=== PATIENT | male | born 1945 | race Caucasian/White ===

== ENCOUNTER → 2017-02-25 | Outpatient (CLI) | payer BC ==
[2017-02-25 11:12] LABS: ALT/SGPT 62 U/L (12-78); AST/SGOT 41 U/L (15-37); BLOOD UREA NITROGEN 13 mg/dl (7-18); BUN/CREATININE RATIO 17.5 (10-20); CALCIUM 8.9 mg/dl (8.5-10.1); CARBON DIOXIDE 28 mmol/L (21-32); CHLORIDE 104 mmol/L (98-107); CREATININE 0.74 mg/dl (0.60-1.40); GLUCOSE 108 mg/dl (70-99); POTASSIUM 3.8 mmol/L (3.5-5.1); SODIUM 140 mmol/L (136-145)
[2017-02-25 11:23] LABS: ALB/GLOB RATIO 0.9 (0.9-2); ALKALINE PHOSPHATASE 59 U/L (45-117); CHOLESTEROL 199 mg/dl (0-200); CHOLESTEROL/HDL RATIO 2.6; HDL CHOLESTEROL 77 mg/dl; LDL CHOLESTEROL CALCULATED 108 mg/dl; TRIGLYCERIDES 72 mg/dl (0-150); VERY LOW DENSITY LIPOPROT CALC 14 mg/dl
[2017-02-25 11:24] LABS: BASO % 0.6 %; BASO ABS # 0.05 K/uL (0-0.2); COMPLETE YES; HEMATOCRIT 47.6 % (42-52); IG% 0.1 %; LYMPH % 28.7 %; LYMPH ABS # 2.34 K/uL (1.2-3.4); MEAN CELL VOLUME 98.6 fL (80-100); MEAN CORPUSCULAR HEMOGLOBIN 34.2 pg (25-34); MEAN CORPUSCULAR HGB CONC 34.7 g/dl (32-36); MONO % 14.2 %; NEUT % 55.4 %; PLATELET COUNT 120 K/uL (130-400); RED BLOOD COUNT 4.83 M/uL (4.7-6.1); WHITE BLOOD COUNT 8.16 K/uL (4.8-10.8)
[2017-02-25 13:10] LABS: URINE APPEARANCE CLEAR (CLEAR); URINE BILIRUBIN NEG (NEG); URINE COLOR YELLOW; URINE EPITHELIAL CELL AUTO 0-5 /lpf (0-5); URINE NITRITE NEG (NEG); URINE PH 6.5 (4.5-7.5); URINE SPECIFIC GRAVITY 1.013 (1.000-1.030); UROBILINOGEN NEG (NEG)
[2017-02-25 13:19] LABS: MANUAL MICROSCOPIC REQUIRED? NO; REVIEW REQ? NO
--- NOTE | 2017-03-04 08:31 | CODING QUERY MEDICAL NECESSITY ---
CQSUPPORTING DIAGNOSIS NEEDED A supporting diagnosis is required for the test/procedure performed on this patient in order for us to be reimbursed by the patient's insurance. Please provide a supporting diagnosis for the following test/procedure listed below next to the test name along with your signature. *If there is no additional diagnosis for this patient that would support the following test/procedure please document that below next to the test/procedure. Test(s)/Procedure(s) that require a supporting diagnosis: DOS 02/25/17 PROSTATE SPECIFIC (PSA) TEST Provider Signature: Date: Thank you Laurel Mott Health Information Management Once completed, please kindly fax back to [phone] For questions please call [phone]
== END | disposition home or self-care (01) ==
LOC: C.LABBC 08:01
PROVIDERS: ATTEND Internal Medicine Pulmonary Disease
DX: Z00.00 Encounter for general adult medical examination without abnormal findings (principal); I10 Essential (primary) hypertension; E01.2 Iodine-deficiency related (endemic) goiter, unspecified; F52.8 Other sexual dysfunction not due to a substance or known physiological condition; E78.5 Hyperlipidemia, unspecified; Z12.5 Encounter for screening for malignant neoplasm of prostate

== ENCOUNTER → 2018-02-25 | Outpatient (CLI) | payer BC ==
[2018-02-25 11:30] LABS: BASO % 0.9 %; BASO ABS # 0.06 K/uL (0-0.2); EOS % 0.7 %; EOS ABS # 0.05 K/uL (0-0.5); HEMATOCRIT 45.4 % (42-52); HEMOGLOBIN 16.2 g/dL (14.0-18.0); IG# 0.01 K/uL (0.00-0.02); LYMPH % 34.4 %; LYMPH ABS # 2.37 K/uL (1.2-3.4); MEAN CELL VOLUME 96.4 fL (80-100); MEAN CORPUSCULAR HEMOGLOBIN 34.4 pg (25-34); MEAN CORPUSCULAR HGB CONC 35.7 g/dl (32-36); MEAN PLATELET VOLUME 12.9 fL (7.4-10.4); MONO % 14.8 %; MONO ABS # 1.02 K/uL (0.11-0.59); NEUT % 49.1 %; NEUT ABS # 3.38 K/uL (1.4-6.5); PLATELET COUNT 111 K/uL (130-400); RED CELL DISTRIBUTION WIDTH SD 42.4 fL (36.4-46.3); WHITE BLOOD COUNT 6.89 K/uL (4.8-10.8)
[2018-02-25 11:37] LABS: ALBUMIN 3.1 gm/dl (3.4-5.0); ALT/SGPT 71 U/L (12-78); AST/SGOT 55 U/L (15-37); BLOOD UREA NITROGEN 14 mg/dl (7-18); CALCIUM 8.4 mg/dl (8.5-10.1); CARBON DIOXIDE 28 mmol/L (21-32); CREATININE 0.89 mg/dl (0.60-1.40); GLUCOSE 98 mg/dl (70-99); SODIUM 138 mmol/L (136-145)
[2018-02-25 11:48] LABS: ALKALINE PHOSPHATASE 56 U/L (45-117); CHOLESTEROL 191 mg/dl (0-200); LDL CHOLESTEROL CALCULATED 111 mg/dl
== END | disposition home or self-care (01) ==
LOC: C.LABBC 07:55
PROVIDERS: ATTEND Internal Medicine Pulmonary Disease
DX: I10 Essential (primary) hypertension (principal); E01.2 Iodine-deficiency related (endemic) goiter, unspecified; E78.5 Hyperlipidemia, unspecified; J30.9 Allergic rhinitis, unspecified; M72.0 Palmar fascial fibromatosis [Dupuytren]

== ENCOUNTER 2022-05-25 19:38 | Observation (INO) ==
[2022-05-25] MEDS ORDERED: SODIUM CHLORIDE 0.9% 1000ML 1,000 ML IV ONE (20:18)
--- NOTE | 2022-05-25 20:23 | Emergency Department Note ---
Impression & Plan Weakness, Right arm weakness, Fall, Alcohol abuse, Stroke-like symptoms ED Provider Note NAME: FCO ACOSTA AGE: 77 SEX: M : 1945 ARRIVES VIA: Ambulance INFORMANT: [Patient][ems] ED PROVIDER(S): [Enzo Thompson MD] CHIEF COMPLAINT: Fall HISTORY OF PRESENT ILLNESS: The patient is a 77-year-old male who presents to the ER after falling out of bed. He thinks this occurred about 4 hours ago. He was not able to get up on his own and was crawling around on the floor. He admits to drinking at least 3 vodka drinks today. He does drink on a daily basis. The patient states that he had felt fine earlier in the day. There has been no fever, no cough or congestion. He has been in baseline health. As per EMS, his blood sugar was 105. EMS reported that his right arm and both lower legs were quite weak and almost immobile at first. His legs have improved and are now quite strong. The right arm is still somewhat weak. There is no facial droop. Of note, the patient has no history of CVA. REVIEW OF SYSTEMS: See HPI for pertinent positives and negatives. A total of ten systems were reviewed and were otherwise negative. PMHx/PSHx: See Below SOCIAL HISTORY: See Below. PHYSICAL EXAM: GENERAL: Patient is in no acute distress. HEENT: No acute trauma, normocephalic atraumatic, mucous membranes dry, no nasal congestion, no scleral icterus. NECK: No stridor, no adenopathy, no meningismus, trachea is midline. LUNGS: Clear to auscultation bilaterally, no wheeze, no rhonchi, breath sounds equal. HEART: Without murmurs gallops or rubs, regular rate and rhythm. ABDOMEN: Soft, nontender, bowel sounds positive, no peritonitis. EXTREMITIES: No cyanosis or edema, full range of motion of all the joints without pain or difficulty. The patient does have an abrasion to the right anterior knee and to the tip of the left great toe. NEUROLOGIC: Oriented x 3. The patient has good strength and no drift of either lower extremity. The left upper extremity does not drift. The right upper extremity does drift but his hand grasp is quite strong on the right. There is no facial droop. SKIN: No rash, no jaundice, no diaphoresis. DIFFERENTIAL DIAGNOSIS: Infection, dehydration, UTI, alcohol abuse, metabolic abnormality, hypo/hyperglycemia, electrolyte disturbance, anemia, hypoxia, cardiac sources, intracerebral event, toxicologic issues, stroke, TIA, as well as other pathologies. EMERGENCY DEPARTMENT COURSE/PROCEDURES: ECG: Indication was possible stroke. The ECG shows a normal sinus rhythm with a rate of 84. There is no ST elevation, no PVCs. The QTc is 427. Continuous Cardiac Monitoring: An order was placed for continuous cardiac monitoring. The monitor shows a rate of 90 with normal sinus rhythm. Critical Care Note: I have personally spent 52 minutes of critical care time in the direct management of this patient. This includes bedside care, interpretation of diagnostic studies, and testing, discussion with consultants, patient, and family members, and other required patient management activities. This 52 minutes is in excess of all separately billable procedures. MEDICAL DECISION MAKING: There is a mild leukocytosis, this could be consistent with infection or the stress of his presentation. Platelet count is slightly low, this has been documented before. There was no anemia. No coagulopathy. No renal failure, no significant electrolyte abnormality in need of emergent correction. No concerning liver enzyme elevation. ECG showed a normal sinus rhythm, no ischemi a. Cardiac enzyme testing x1 was not consistent with acute cardiac injury. Urinalysis did not show infection. Alcohol level was quite high at over 300. COVID test returned negative. Brain CT showed no acute bleed or mass-effect. CT angio of the head and neck did show some cervical artery stenosis, no acute clot. On exam, the patient's lower extremity weakness had improved markedly, there was no lower extremity drift, no speech slur, he did have weakness to the proximal muscles of the right arm. The right hand grasp was strong and intact. Patient received IV saline, 1 L. The patient presents with strokelike symptoms. He had markedly improved prior to arrival. He was out of the window for tPA as his symptoms had started over 4 hours prior to presentation. At this point, I am not certain if this is a stroke or some sort of alcohol- related weakness or some sort of peripheral nerve impingement/injury. I do think further workup in the hospital is warranted. I spoke with the patient, patient believes that the right arm weaknesshas improved since he has been in the ED. His strength seems better proximally. I did talk to case management, the on-call hospitalist has been consulted. Past Med/Surg History Medical History Anxiety Hypertension Thrombocytopenia Surgical History H/O colonoscopy (~2003) Family History Mother Alzheimer disease Father Alzheimer disease Social History Smoking Status: Never smoker Hx Alcohol Use: Yes Alcohol type: beer and hard liquor Hx Substance Use: No Preferred Language: Palauan Communication Ability: Effective Osteopathic Neurologist Required: No Beliefs That Will Affect Care: None marital status: Current Living Situation: Spouse Current Living Situation Comment: worries about balance current occupational status: retired Feels Safe at Home: Yes Assistive Devices: Glasses Allergies Allergies Allergy/AdvReac Type Severity Reaction Status Date / Time Sulfa (Sulfonamide Allergy Intermediate Rash Verified 05/25/22 21:10 Antibiotics) Home Meds Home Medications Medication Instructions Recorded Confirmed cyclobenzaprine 5 mg tablet 5 mg PO HS PRN Spasms 09/05/19 05/25/22 ketoconazole 2 % topical cream 1 applic topical DIRECTED PRN 09/05/19 05/25/22 Skin Irritation loratadine 10 mg tablet 10 mg PO DAILY 09/05/19 05/25/22 sildenafil 50 mg tablet 50 mg PO DIRECTED PRN Sexual 09/05/19 05/25/22 Activity Previous Rx's Medication Instructions Recorded lisinopril 20 1 tab PO DAILY #90 tabs 04/18/22 mg-hydrochlorothiazide 25 mg tablet Results & Data (ED) Vital Signs Vital Signs - 24 hr 05/25/22 19:46 05/25/22 21:32 05/26/22 00:08 Temperature 36.6 C Temperature Source Oral Pulse Rate 90 Pulse Rate [Apical] 91 H 84 Pulse Rhythm Regular Pulse Strength Normal Respiratory Rate 20 18 17 Respiratory Effort / Characteristics Non-Labored Non-Labored Spontaneous Respiratory Depth Normal Normal Respiratory Pattern Regular Blood Pressure 166/86 H Blood Pressure [Left Arm] 126/78 148/84 H Blood Pressure Mean 112 Blood Pressure Mean [Left Arm] 94 105 Blood Pressure Position [Left Arm] Lying Pulse Oximetry 94 97 96 Oxygen Delivery Method Room Air Room Air Room Air Sepsis Recent Fever Within 48 Hours No Sepsis New/Unexplained Change in Mental Status N/A Sepsis Action Taken by Nursing No Action Required Home Medications Current Medication List: was personally reviewed by me Laboratory Data Attestation: I reviewed the patient's lab results. Result diagrams: 05/25/22 20:44 05/25/22 20:44 Lab Results 05/25/22 05/25/22 05/25/22 Range/Units 20:44 20:44 20:44 WBC 11.10 H (4.8-10.8) K/ul RBC 4.29 L (4.63-6.08) M/uL Hgb 14.7 (14.0-18.0) g/dl Hct 41.7 (40.1-51.0) % MCV 97.2 (80.0-100.0) fL MCH 34.3 H (25.0-34.0) pg MCHC 35.3 (32.0-36.0) g/dL RDW Std Deviation 39.8 (36.4-46.3) fL RDW Coeff of Alberto 11.3 L (11.5-14.5) % Plt Count 115 L (130-400) K/uL MPV 11.9 (9.4-12.4) fL Immature Gran % (Auto) 0.4 % Neut % (Auto) 76.4 % Lymph % (Auto) 15.3 % Bacon % (Auto) 7.4 % Eos % (Auto) 0.1 % Baso % (Auto) 0.4 % Neut # (Auto) 8.49 H (1.4-6.5) K/uL Lymph # (Auto) 1.70 (1.2-3.4) K/uL Bacon # (Auto) 0.82 (0.24-0.82) K/uL Eos # (Auto) 0.01 (0-0.50) K/uL Baso # (Auto) 0.04 (0-0.2) K/uL Immature Gran # (Auto) 0.04 H (0.00-0.02) K/uL PT 10.5 (9.0-12.0) Seconds INR 1.0 (0.9-1.1) APTT 22.4 (21.0-31.0) Seconds PTT Ratio 0.8 Sodium 135 L (136-145) mmol/L Potassium 3.5 (3.5-5.1) mmol/L Chloride 98 (98-107) mmol/L Carbon Dioxide 23 (21-32) mmol/L Anion Gap 14 H (3-11) BUN 15 (6-23) mg/dl Creatinine 1.01 (0.6-1.4) mg/dl Est Cr Clr Drug Dosing 71.6 ml/min Est GFR ( Amer) 83.9 ml/min Est GFR (Non-Af Amer) 72.4 ml/min BUN/Creatinine Ratio 14.9 (10-20) Glucose 100 H (70-99(Fasting)) mg/dl Calcium 8.8 (8.5-10.1) mg/dl Magnesium 1.7 (1.7-2.4) mg/dl Total Bilirubin 0.9 (0.2-1.0) mg/dl AST 33 (13-39) U/L ALT 25 (7-52) U/L Alkaline Phosphatase 50 (34-104) U/L Troponin I High Sens 8.2 (0-20) pg/ml Total Protein 6.6 (6.0-8.3) gm/dl Albumin 3.8 (3.4-5.0) gm/dl Globulin 2.8 (2.5-4.0) gm/dl Albumin/Globulin Ratio 1.4 (0.9-2) Urine Color Urine Appearance (Clear) Urine pH (4.5-7.5) Ur Specific Aurora (1.000-1.030) Urine Protein (Negative) Urine Glucose (UA) (Negative) Urine Ketones (Negative) Urine Blood (Negative) Urine Nitrite (Negative) Urine Bilirubin (Negative) Urine Urobilinogen (Negative) Ur Leukocyte Esterase (Negative) Ethyl Alcohol mg/dL (<10.0) mg/dl SARS-CoV-2, RNA, NAAT (NEGATIVE) 05/25/22 05/25/22 05/25/22 Range/Units 20:44 20:45 22:10 WBC (4.8-10.8) K/ul RBC (4.63-6.08) M/uL Hgb (14.0-18.0) g/dl Hct (40.1-51.0) % MCV (80.0-100.0) fL MCH (25.0-34.0) pg MCHC (32.0-36.0) g/dL RDW Std Deviation (36.4-46.3) fL RDW Coeff of Alberto (11.5-14.5) % Plt Count (130-400) K/uL MPV (9.4-12.4) fL Immature Gran % (Auto) % Neut % (Auto) % Lymph % (Auto) % Bacon % (Auto) % Eos % (Auto) % Baso % (Auto) % Neut # (Auto) (1.4-6.5) K/uL Lymph # (Auto) (1.2-3.4) K/uL Bacon # (Auto) (0.24-0.82) K/uL Eos # (Auto) (0-0.50) K/uL Baso # (Auto) (0-0.2) K/uL Immature Gran # (Auto) (0.00-0.02) K/uL PT (9.0-12.0) Seconds INR (0.9-1.1) APTT (21.0-31.0) Seconds PTT Ratio Sodium (136-145) mmol/L Potassium (3.5-5.1) mmol/L Chloride (98-107) mmol/L Carbon Dioxide (21-32) mmol/L Anion Gap (3-11) BUN (6-23) mg/dl Creatinine (0.6-1.4) mg/dl Est Cr Clr Drug Dosing ml/min Est GFR ( Amer) ml/min Est GFR (Non-Af Amer) ml/min BUN/Creatinine Ratio (10-20) Glucose (70-99(Fasting)) mg/dl Calcium (8.5-10.1) mg/dl Magnesium (1.7-2.4) mg/dl Total Bilirubin (0.2-1.0) mg/dl AST (13-39) U/L ALT (7-52) U/L Alkaline Phosphatase (34-104) U/L Troponin I High Sens (0-20) pg/ml Total Protein (6.0-8.3) gm/dl Albumin (3.4-5.0) gm/dl Globulin (2.5-4.0) gm/dl Albumin/Globulin Ratio (0.9-2) Urine Color Yellow Urine Appearance Clear (Clear) Urine pH 7.0 (4.5-7.5) Ur Specific Aurora 1.021 (1.000-1.030) Urine Protein Negative (Negative) Urine Glucose (UA) Negative (Negative) Urine Ketones Negative (Negative) Urine Blood Negative (Negative) Urine Nitrite Negative (Negative) Urine Bilirubin Negative (Negative) Urine Urobilinogen Negative (Negative) Ur Leukocyte Esterase Negative (Negative) Ethyl Alcohol mg/dL 308.1 H (<10.0) mg/dl SARS-CoV-2, RNA, NAAT NEGATIVE (NEGATIVE) Administered Medications Folic Acid 1 mg/ Syringe 10 mls @ 5 mls[facility] [place] Stop: 06/25/22 10:29 Last Admin: 05/26/22 10:54 Dose: 5 mls/min Documented By: JULITO Thiamine HCl 100 mg/ Syringe 10 mls @ 2 mls/min IV QAM [facility] Stop: 06/25/22 10:29 Last Admin: 05/26/22 10:54 Dose: 2 mls/min Documented By: JULITO Pantoprazole Sodium 40 mg/ (Syringe) 10 mls @ 5 mls/min IV DAILY@1100 [facility] Stop: 06/25/22 10:59 Last Admin: 05/26/22 10:53 Dose: 5 mls/min Documented By: JULITO Sodium Chloride (Nss) 500 mls @ 80 mls/hr IV .Q6H15M [facility] Stop: 06/25/22 10:44 Last Admin: 05/26/22 10:53 Dose: 80 mls/hr Documented By: JULITO Loratadine (Loratadine 10 Mg Tab) 10 mg PO DAILY [facility] Stop: 06/25/22 08:59 Last Admin: 05/26/22 09:02 Dose: 10 mg Documented By: JULITO Discontinued Medications Aspirin (Aspirin 81 Mg Chew) 324 mg PO ONCE ONE Stop: 05/26/22 09:35 Last Admin: 05/26/22 10:47 Dose: 324 mg Documented By: JULITO Lisinopril/HCTZ (Lisinopril/Hctz 20/25mg 1 Tab) 1 tab PO DAILY [facility] Stop: 06/25/22 08:59 Last Admin: 05/26/22 09:02 Dose: 1 tab Documented By: JULITO Sodium Chloride (Nss 1000ml) 1,000 mls @ 999 mls/hr IV .Q1H1M ONE Stop: 05/25/22 21:18 Last Infusion: 05/25/22 21:42 Dose: 0 mls/hr Documented By: Admin: 05/25/22 20:41 Dose: 999 mls/hr Documented By: ABEL Lorazepam 1 mg/ Syringe 1 mls @ 2 mls/min IV NOW STA Stop: 05/26/22 11:20 Last Admin: 05/26/22 12:16 Dose: 2 mls/min Documented By: JULITO Ioversol (Optiray 320 125ml) 120 ml IV ONCE ONE Stop: 05/25/22 21:56 Last Admin: 05/25/22 21:55 Dose: 120 ml Documented By: AUSTIN Thiamine HCl (Thiamine Hcl 100 Mg/Ml 2 Ml Vial) 100 mg IM NOW STA Stop: 05/26/22 10:01 Last Admin: 05/26/22 10:56 Dose: 100 mg Documented By: JULITO Imaging Data Radiologist's Impression: Chest X-Ray 05/25/22 20:18 XR chest 1V portable HISTORY: 77 years-old Male Stroke Like Symptoms acute strokelike symptoms COMPARISON: CTA head neck of same day TECHNIQUE: Semierect AP view of the chest FINDINGS: Cardiac silhouette is enlarged. No pneumothorax, large pleural effusion or lobar airspace consolidation. Mild interstitial coarsening is most pronounced in the left lung base. Degenerative changes of the shoulders and spine. IMPRESSION: 1. Cardiomegaly without overt pulmonary edema. 2. Mild interstitial opacities, most pronounced within the left lung base are likely chronic. ACT 112: Negative or not required by law. The above report was generated using voice recognition software. It may contain grammatical, syntax or spelling errors. Electronically signed by: Tad Cardoso M.D. 05/26/2022 9:[address] 05/25/22 20:18 CT head/brain wo con CLINICAL HISTORY: 77 years-old Male with Stroke Like Symptoms. Acute strokelike symptoms TECHNIQUE: Multiple axial CT images of the head were obtained without contrast. A dose lowering technique was utilized adhering to the principles of ALARA. COMPARISON: CTA head and neck of same day. FINDINGS: No acute intracranial hemorrhage, midline shift, intracranial mass, hydrocephalus, territorial ischemia or abnormal extra-axial collection. Age- related involutional changes. Cerebral vascular calcifications. The calvarium is intact. Prior bilateral lens repair. The paranasal sinuses, mastoid air cells, and middle ear cavities are clear. IMPRESSION: No acute intracranial abnormality. ACT 112: Negative or not required by law. The above report was generated using voice recognition software. It may contain grammatical, syntax or spelling errors. Electronically signed by: Tad Cardoso M.D. 05/26/2022 7:10 AM Head CTA 05/25/22 20:18 CT angio neck with con, CT angio head w con CLINICAL HISTORY: 77 years-old Male with Stroke Like Symptoms. Acute strokelike symptoms COMPARISON STUDY: Head CT of same day TECHNIQUE: Following the IV administration of 120 of Optiray, CT angiogram of the head and neck was performed from the aortic arch to the skull apex. Images are reviewed in the axial, sagittal, and coronal planes. 3-D MIPS images are created and assessed. IV contrast was administered without complication. All measurements were calculated based on NASCET criteria. A dose lowering technique was utilized adhering to the principles of ALARA. CT DOSE: 1211.58 mGy.cm FINDINGS: Atherosclerosis of the thoracic aortic arch. Patency of the innominate and imaged subclavian arteries. Atherosclerosis of the common carotid arteries without high-grade stenosis. There is moderate atherosclerotic plaque of the carotid bulbs and proximal cervical segments of the internal carotid arteries resulting in less than 50% stenosis bilaterally. There is additional atherosclerotic plaque of the cavernous and clinoid segments without significant stenosis. Atherosclerotic plaque at the origin of the right vertebral artery results in approximately 50% stenosis. There is less than 50% stenosis at the origin of the left vertebral artery. High-grade stenosis of the distal V4 segment right vertebral artery. No flow identified within the V4 segment of the left vertebral artery. Mild multifocal luminal narrowing of the diminutive basilar artery. Ectasia of the basilar tip measures 3 mm. Mild multifocal luminal narrowing of the right posterior cerebral artery. Cerebral venous sinuses are patent. There is no abnormal intracranial enhancement. Lung apices are clear. Heterogeneous 1.9 cm right-sided thyroid nodule. Mild polypoid mucosal thickening of the left maxillary sinus. Degenerative changes of the spine. IMPRESSION: 1. High-grade stenosis of the V4 segment right vertebral artery with high-grade stenosis versus occlusion of the V4 segment left vertebral artery, age- indeterminate. This finding was called/faxed to the floor at time of dictation. 2. Atherosclerotic plaque of the carotid bulbs results in less than 50% stenosis bilaterally. 3. There is approximately 50% luminal narrowing at the origin of the right vertebral artery. ACT 112: Negative or not required by law. The above report was generated using voice recognition software. It may contain grammatical, syntax or spelling errors. Electronically signed by: Tad Cardoso M.D. 05/26/2022 7:32 AM Neck CTA 05/25/22 20:18 CT angio neck with con, CT angio head w con CLINICAL HISTORY: 77 years-old Male with Stroke Like Symptoms. Acute strokelike symptoms COMPARISON STUDY: Head CT of same day TECHNIQUE: Following the IV administration of 120 of Optiray, CT angiogram of the head and neck was performed from the aortic arch to the skull apex. Images are reviewed in the axial, sagittal, and coronal planes. 3-D MIPS images are cr eated and assessed. IV contrast was administered without complication. All measurements were calculated based on NASCET criteria. A dose lowering technique was utilized adhering to the principles of ALARA. CT DOSE: 1211.58 mGy.cm FINDINGS: Atherosclerosis of the thoracic aortic arch. Patency of the innominate and imaged subclavian arteries. Atherosclerosis of the common carotid arteries without high-grade stenosis. There is moderate atherosclerotic plaque of the carotid bulbs and proximal cervical segments of the internal carotid arteries resulting in less than 50% stenosis bilaterally. There is additional atheros clerotic plaque of the cavernous and clinoid segments without significant stenosis. Atherosclerotic plaque at the origin of the right vertebral artery results in approximately 50% stenosis. There is less than 50% stenosis at the origin of the left vertebral artery. High-grade stenosis of the distal V4 segment right vertebral artery. No flow identified within the V4 segment of the left vertebral artery. Mild multifocal luminal narrowing of the diminutive basilar artery. Ectasia of the basilar tip measures 3 mm. Mild multifocal luminal narrowing of the right posterior cerebral artery. Cerebral venous sinuses are patent. There is no abnormal intracranial enhancement. Lung apices are clear. Heterogeneous 1.9 cm right-sided thyroid nodule. Mild polypoid mucosal thickening of the left maxillary sinus. Degenerative changes of the spine. IMPRESSION: 1. High-grade stenosis of the V4 segment right vertebral artery with high-grade stenosis versus occlusion of the V4 segment left vertebral artery, age- indeterminate. This finding was called/faxed to the floor at time of dictation. 2. Atherosclerotic plaque of the carotid bulbs results in less than 50% stenosis bilaterally. 3. There is approximately 50% luminal narrowing at the origin of the right vertebral artery. ACT 112: Negative or not required by law. The above report was generated using voice recognition software. It may contain grammatical, syntax or spelling errors. Electronically signed by: Tad Cardoso M.D. 05/26/2022 7:[address]: No acute intracranial abnormality. Atrophy and chronic microangiopathic changes seen CTA of the neck: Mild stenosis at the origin of the right vertebral artery which is otherwise adequately patent. Mild stenosis at the origin of the left vertebral artery which is otherwise adequately patent. Bilateral common carotid arteries are adequately patent. Bilateral internal carotid arteries are adequately patent. Thyroid nodule seen. CTA of the head: No arterial occlusion. Discharge Plan Visit Data Chief Complaint: Fall ED Provider: Enzo Thompson Discharge Problem: Weakness, Right arm weakness, Fall, Alcohol abuse, Stroke-like symptoms Patient Disposition: Admitted As Inpatient Condition: Fair Discharge Instructions Interventions: ED Discharge Assessment Last Done: 05/26/22 04:39
[2022-05-25 20:56] LABS: Basophils # (auto) 0.04 K/uL (0-0.2); Basophils % (auto) 0.4 %; Eosinophils # (auto) 0.01 K/uL (0-0.50); Eosinophils % (auto) 0.1 %; Hematocrit (blood only) 41.7 % (40.1-51.0); Hemoglobin 14.7 g/dl (14.0-18.0); Immature Granulocytes # (auto) 0.04 K/uL (0.00-0.02); Immature Granulocytes % (auto) 0.4 %; Lymphocytes % (auto) 15.3 %; Mean Corpuscular Hemoglobin 34.3 pg (25.0-34.0); Mean Corpuscular Hgb Conc 35.3 g/dL (32.0-36.0); Mean Corpuscular Volume 97.2 fL (80.0-100.0); Mean Platelet Volume 11.9 fL (9.4-12.4); Monocytes # (auto) 0.82 K/uL (0.24-0.82); Monocytes % (auto) 7.4 %; Neutrophils # (auto) 8.49 K/uL (1.4-6.5); Neutrophils % (auto) 76.4 %; Platelet Count 115 K/uL (130-400); RDW Coefficient of Variation 11.3 % (11.5-14.5); RDW Standard Deviation 39.8 fL (36.4-46.3); Red Blood Count 4.29 M/uL (4.63-6.08)
[2022-05-25 21:18] LABS: Albumin Globulin Ratio 1.4 (0.9-2); Albumin Level 3.8 gm/dl (3.4-5.0); BUN Creatinine Ratio 14.9 (10-20); Bilirubin,Total 0.9 mg/dl (0.2-1.0); Calcium 8.8 mg/dl (8.5-10.1); Creatinine Clr Calc Pharmacy 71.6 ml/min; Est GFR (African American) 83.9 ml/min; Est GFR (Non-African American) 72.4 ml/min; Globulin 2.8 gm/dl (2.5-4.0); Magnesium 1.7 mg/dl (1.7-2.4); Potassium 3.5 mmol/L (3.5-5.1); Total Protein 6.6 gm/dl (6.0-8.3)
[2022-05-25 21:23] LABS: Troponin I High Sensitivity 8.2 pg/ml (0-20)
[2022-05-25 21:27] LABS: Partial Thromboplastin Ratio 0.8; Partial Thromboplastin Time 22.4 Seconds (21.0-31.0); Prothrombin Time 10.5 Seconds (9.0-12.0)
[2022-05-25] MEDS ORDERED: OPTIRAY 320 125ml IV ONE (21:55)
[2022-05-25 22:27] LABS: Appearance Urine Clear (Clear); Bilirubin Urine Negative (Negative); Blood Urine Negative (Negative); Color Urine Yellow; Glucose Urine UA Negative (Negative); Ketones Urine Negative (Negative); Leukocyte Esterase Urine Negative (Negative); Nitrite Urine Negative (Negative); Protein Urine Negative (Negative); Specific Gravity Urine 1.021 (1.000-1.030); Urobilinogen Urine Negative (Negative)
--- NOTE | 2022-05-26 04:33 | History & Physical Report ---
Date of Service May 26, 2022 Assessment & Plan (1) Right arm weakness: Plan: Improving subjective right arm weakness/resolved right leg weakness/status post fall out of bed- Patient lying on floor for unknown interval time Had difficulty moving right side of body in particular upon awakening Right leg examination normal Right arm with good manager equipment strength, no neck pain, no shoulder pain, his arm is able to be passively lifted into full normal position, and is able to move it to full positioned but slowly actively I suspect he probably has a mild compression of nerve after lying on that side for and extended interval of time. We will just monitor him overnight. If symptoms are persistent in the morning will do MRI of brain and cervical spine Do not think that this is a stroke His history for this event is not completely reliable, as he has significant alcohol intake with alcohol level of 308 (2) Hypertension: Plan: Continue lisinopril/HCTZ (3) Alcohol intoxication: Plan: Alcohol level 308 upon admission, and reports daily use Suspect he will be discharged prior to any possibility of withdrawal, however, would put on AWSS protocol if patient remains in the hospital longer than lunchtime (4) Anxiety: (5) Inhibited sexual excitement: (6) Thrombocytopenia: (7) Status post fall: History of Present Illness Chief Complaint: The patient presents to the emergency department after falling out of bed while playing with his dog, he was on the floor for unknown period of time, thinking that it was a least 4 hours, and had difficulty moving his right arm and right leg. Upon arrival by EMS, they reported that his right arm and both lower legs were quite weak and almost immobile at first, by the time the patient arrived to the emergency department, his legs were improved but his right arm was still feeling somewhat weak. Primary Care Provider: Fco Crump MD The patient is a 77-year-old male with a past medical history including nontoxic diffuse colloid goiter, hypertension, hyperlipidemia, heel spur, hearing loss, glaucoma, Dupuytren's contracture, anxiety and allergic rhinitis. Who presents with symptoms as noted above. It was also noted that he did not have any facial droop, difficulty with speech or swallowing. Reports drinking alcohol daily basis, and alcohol level in the emergency department was 308. CT scan of head without contrast was negative, CTA head was negative, CTA of neck showed mild stenosis of the origin of both the right vertebral and left vertebral arteries with normal flow. Allergies Allergy/AdvReac Type Severity Reaction Status Date / Time Sulfa (Sulfonamide Allergy Intermediate Rash Verified 05/25/22 21:10 Antibiotics) Home Medications Medication Instructions Recorded Confirmed Type cyclobenzaprine 5 mg tablet 5 mg PO HS PRN Spasms 09/05/19 05/25/22 History ketoconazole 2 % topical cream 1 applic topical DIRECTED PRN 09/05/19 05/25/22 History Skin Irritation loratadine 10 mg tablet 10 mg PO DAILY 09/05/19 05/25/22 History sildenafil 50 mg tablet 50 mg PO DIRECTED PRN Sexual 09/05/19 05/25/22 History Activity lisinopril 20 1 tab PO DAILY #90 tabs 04/18/22 05/25/22 Rx mg-hydrochlorothiazide 25 mg tablet Past Med/Surg History Surgical History H/O colonoscopy (~2003) Family History Mother Alzheimer disease Father Alzheimer disease Social History Smoking Status: Never smoker Hx Alcohol Use: Yes marital status: Current Living Situation: Spouse current occupational status: retired Feels Safe at Home: Yes Review of Systems Review of Systems: The patient denies chest pain, palpitations, shortness of breath, dyspnea on exertion, cough, lower extremity swelling, sore throat, fevers, chills, sweats, weight change, fatigue, nausea, vomiting, diarrhea , constipation, abdominal pain, pelvic pain, blood in urine or stool, dysuria, urinary frequency or urgency, lightheadedness, dizziness, headache, rash, abnormal bruising or bleeding, focal weakness, numbness or tingling in left arm, generalized arthralgias or myalgias, back or neck pain, or night sweats. The review of systems is otherwise negative other than for that already noted above, and at least 10 systems have been reviewed. Physical Exam Physical Exam: The patient is awake, alert and oriented 3, well developed and well nourished, normocephalic and atraumatic, lying in bed and in no acute distress. HEENT--PERRL, EOMI, mucous membranes and oropharynx dry. Neck--supple. No JVD. No bruits. Thyroid normal, trachea midline, no adenopathy. Heart--normal S1 and S2. No murmurs, rubs or gallops. Lungs--clear bilaterally, no respiratory distress, no accessory muscle use. Abdomen--normal bowel sounds and soft. Nontender. Nondistended, no hernias or masses, no organomegaly. Extremities--no cyanosis or clubbing. No edema. There are good distal pulses b/l. Dermatologic--normal skin turgor, normal color, no abnormal lymph nodes, no rash. Neurologic--cranial nerves II through XII grossly intact. Rheumatologic--normal range of motion, except for decreased ability to lift right arm, being able to slowly lifted to normal range compared to normal speed and amplitude of left arm. Top Edge Beveler strength normal bilaterally Psychiatric--normal affect. Results & Data Results & Data ([facility]) Vital Signs (Past 12 Hours) Vital Signs Temp Pulse Pulse Resp BP BP Pulse Ox 05/26/22 03:37 86 18 181/81 H 96 05/26/22 00:08 84 17 148/84 H 96 05/25/22 21:32 91 H 18 126/78 97 05/25/22 19:46 36.6 C 90 20 166/86 H 94 O2 Del Method 05/26/22 03:37 Room Air 05/26/22 00:08 Room Air 05/25/22 21:32 Room Air 05/25/22 19:46 Room Air Laboratory Results Laboratory Results WBC 11.10 K/ul (4.8-10.8) H 05/25/22 20:44 RBC 4.29 M/uL (4.63-6.08) L 05/25/22 20:44 Hgb 14.7 g/dl (14.0-18.0) 05/25/22 20:44 Hct 41.7 % (40.1-51.0) 05/25/22 20:44 MCV 97.2 fL (80.0-100.0) 05/25/22 20:44 MCH 34.3 pg (25.0-34.0) H 05/25/22 20:44 MCHC 35.3 g/dL (32.0-36.0) 05/25/22 20:44 RDW Std Deviation 39.8 fL (36.4-46.3) 05/25/22 20:44 RDW Coeff of Alberto 11.3 % (11.5-14.5) L 05/25/22:44 Plt Count 115 K/uL (130-400) L 05/25/22 20:44 MPV 11.9 fL (9.4-12.4) 05/25/22 20:44 Immature Gran % (Auto) 0.4 % 05/25/22:44 Neut % (Auto) 76.4 % 05/25/22 20:44 Lymph % (Auto) 15.3 % 05/25/22 20:44 [place] % (Auto) 7.4 % 05/25/22:44 Eos % (Auto) 0.1 % 05/25/22:44 Baso % (Auto) 0.4 % 05/25/22:44 Neut # (Auto) 8.49 K/uL (1.4-6.5) H 05/25/22 20:44 Lymph # (Auto) 1.70 K/uL (1.2-3.4) 05/25/22 20:44 [place] # (Auto) 0.82 K/uL (0.24-0.82) 05/25/22 20:44 Eos # (Auto) 0.01 K/uL (0-0.50) 05/25/22 20:44 Baso # (Auto) 0.04 K/uL (0-0.2) 05/25/22 20:44 Immature Gran # (Auto) 0.04 K/uL (0.00-0.02) H 05/25/22 20:44 PT 10.5 Seconds (9.0-12.0) 05/25/22 20:44 INR 1.0 (0.9-1.1) 05/25/22:44 APTT 22.4 Seconds (21.0-31.0) 05/25/22:44 PTT Ratio 0.8 05/25/22 20:44 Sodium 135 mmol/L (136-145) L 05/25/22 20:44 Potassium 3.5 mmol/L (3.5-5.1) 05/25/22:44 Chloride 98 mmol/L (98-107) 05/25/22 20:44 Carbon Dioxide 23 mmol/L (21-32) 05/25/22 20:44 Anion Gap 14 (3-11) H 05/25/22 20:44 BUN 15 mg/dl (6-23) 05/25/22 20:44 Creatinine 1.01 mg/dl (0.6-1.4) 05/25/22 20:44 Est Cr Clr Drug Dosing 71.6 ml/min 05/25/22 20:44 Est GFR ( Amer) 83.9 ml/min 05/25/22 20:44 Est GFR (Non-Af Amer) 72.4 ml/min 05/25/22 20:44 BUN/Creatinine Ratio 14.9 (10-20) 05/25/22 20:44 Glucose 100 mg/dl (70-99(Fasting)) H 05/25/22 20:44 Calcium 8.8 mg/dl (8.5-10.1) 05/25/22 20:44 Magnesium 1.7 mg/dl (1.7-2.4) 05/25/22 20:44 Total Bilirubin 0.9 mg/dl (0.2-1.0) 05/25/22 20:44 AST 33 U/L (13-39) 05/25/22 20:44 ALT 25 U/L (7-52) 05/25/22 20:44 Alkaline Phosphatase 50 U/L (34-104) 05/25/22 20:44 Troponin I High Sens 8.2 pg/ml (0-20) 05/25/22 20:44 Total Protein 6.6 gm/dl (6.0-8.3) 05/25/22 20:44 Albumin 3.8 gm/dl (3.4-5.0) 05/25/22 20:44 Globulin 2.8 gm/dl (2.5-4.0) 05/25/22 20:44 Albumin/Globulin Ratio 1.4 (0.9-2) 05/25/22 20:44 Urine Color Yellow 05/25/22 22:10 Urine Appearance Clear (Clear) 05/25/22 22:10 Urine pH 7.0 (4.5-7.5) 05/25/22 22:10 Ur Specific [place] 1.021 (1.000-1.030) 05/25/22 22:10 Urine Protein Negative (Negative) 05/25/22 22:10 Urine Glucose (UA) Negative (Negative) 05/25/22 22:10 Urine Ketones Negative (Negative) 05/25/22 22:10 Urine Blood Negative (Negative) 05/25/22 22:10 Urine Nitrite Negative (Negative) 05/25/22 22:10 Urine Bilirubin Negative (Negative) 05/25/22 22:10 Urine Urobilinogen Negative (Negative) 05/25/22 22:10 Ur Leukocyte Esterase Negative (Negative) 05/25/22 22:10 Ethyl Alcohol mg/dL 308.1 mg/dl (<10.0) H 05/25/22 20:44 SARS-CoV-2, RNA, NAAT NEGATIVE (NEGATIVE) 05/25/22 20:45 Diagnostic Findings [facility] Patient: FCO ACOSTA JR (Male) : 49 Status: ER Date: 05/25/22 22:01 Room #: History: STROKE LIKE SX'S PT MOVING AROUND ON TABLE, CT SAFETY STRAPS USED FOR PT SAFETY OPTIRAY 320 120ML EK/DG Slices: 793 Priors: Tech: Enzo Munoz @ [phone] Exams: CTA NECK Contrast: IV Amt: 120ML Accession Numbers: [id number] Referring Physician: REFERRED SELF Preliminary Findings Only See Final Report For Complete Findings CTA NECK: Mild stenosis at the origin of the right vertebral artery, which is otherwise adequately patent. Mild stenosis at the origin of the left vertebral artery, which is otherwise adequately patent. Bilateral common carotid arteries are adequately patent. Bilateral internal carotid arteries are adequately patent. Thyroid nodules. Radiologist: Herminio Salgado M.D. Study ready at 22:05 and initial results transmitted at 00:19 *This report constitutes a preliminary interpretation only. Non-acute findings felt to be unrelated to the clinical presentation may not be discussed in this report. The study will be interpreted and a final report will be generated by the local Radiologist the following shift. To reach the [facility] radiology department call [phone]. [facility] Patient: FCO ACOSTA JR (Male) : 49 Status: ER Date: 05/25/22 22:04 Room #: History: STROKE LIKE SX'S PT MOVING AROUND ON TABLE, CT SAFETY STRAPS USED FOR PT SAFETY OPTIRAY 320 120ML EK/DG Slices: 67 Priors: Tech: Enzo Munoz @ [phone] Exams: CT HEAD Contrast: Accession Numbers: [id number] Referring Physician: REFERRED SELF Preliminary Findings Only See Final Report For Complete Findings CT HEAD: No acute intracranial abnormality. Atrophy and chronic microangiopathic changes. Radiologist: Seth Bullard MD Study ready at 23:50 and initial results transmitted at 00:02 *This report constitutes a preliminary interpretation only. Non-acute findings felt to be unrelated to the clinical presentation may not be discussed in this report. The study will be interpreted and a final report will be generated by the local Radiologist the following shift. To reach the [facility] radiology department call [phone]. If a discrepancy is found between the preliminary and final interpretations of this study, please notify us via our Client Portal at [email or web address], under QA Exams. You can also fax this report with a description of the discrepancy, or include the final report, to our daytime fax number [phone]. If faxing, please indicate the severity of discrepancy using one of the following categories: [ ] 1 - Agree/Informational [ ] 2 - Unlikely to Affect Management [ ] 3 - Possible Eventual Change of Management [ ] 4 - Probable Immediate Change of Management For all other patient re [facility] Patient: FCO ACOSTA JR (Male) : 49 Status: ER Date: 05/25/22 22:07 Room #: History: STROKE LIKE SX'S PT MOVING AROUND ON TABLE, CT SAFETY STRAPS USED FOR PT SAFETY OPTIRAY 320 120ML EK/DG Slices: 618 Priors: Tech: Enzo Munoz @ [phone] Exams: CTA HEAD Contrast: IV Amt: 120ML Accession Numbers: [id number] Referring Physician: REFERRED SELF Preliminary Findings Only See Final Report For Complete Findings CTA HEAD: No arterial occlusion. The proximal basilar is attenuated in appearance. Remainder of the basilar is widely patent. Good blood flow in the room inspector and within the [place] of [place]. Radiologist: Seth Bullard MD Study ready at 00:30 and initial results transmitted at 00:41 *This report constitutes a preliminary interpretation only. Non-acute findings felt to be unrelated to the clinical presentation may not be discussed in this report. The study will be interpreted and a final report will be generated by the local Radiologist the following shift. To reach the [facility] radiology department call [phone]. If a discrepancy is found between the preliminary and final interpretations of this study, please notify us via our Client Portal at [email or web address], under QA Exams. You can also fax this report with a description of the discrepancy, or include the final report, to our daytime fax number [phone]. If faxing, please indicate the severity of discrepancy using one of the following categories: [ ] 1 - Agree/Informational [ ] 2 - Unlikely to Affect Management [ ] 3 - Possible Eventual Change of Management [ ] 4 - Probable Immediate Change of Management For all other patient related i Code Status & VTE Plan Code Status Full code VTE Prophylaxis Plan VTE Prophylaxis will be ordered: Yes PG Care Time/CCT Total # of Minutes Spent Total Time Spent with Patient: Total time spent is greater than 50% in coordination of care (as documented) at patient's floor/unit and/or counseling patient: Coding Level of Care Code INT OBSERVATION CARE 70M LVL 3 Diagnoses Right arm weakness R29.898 Hypertension I10 Alcohol intoxication F10.929 Anxiety F41.9 Inhibited sexual excitement F52.8 Thrombocytopenia D69.6 Status post fall Z91.81
[2022-05-26] MEDS ORDERED: ONDANSETRON INJ 2 MG/ML 2 ML VIAL IV PRN (05:31)
[2022-05-26] MEDS ORDERED: CYCLOBENZAPRINE HCL 5 MG TAB PO PRN (05:31)
--- NOTE | 2022-05-26 07:11 | CT Scan Report ---
CT head/brain wo con CLINICAL HISTORY: 77 years-old Male with Stroke Like Symptoms. Acute strokelike symptoms TECHNIQUE: Multiple axial CT images of the head were obtained without contrast. A dose lowering tech nique was utilized adhering to the principles of ALARA. COMPARISON: CTA head and neck of same day. FINDINGS: No acute intracranial hemorrhage, midline shift, intracranial mass, hydrocephalus, territorial ischem ia or abnormal extra-axial collection. Age-related involutional changes. Cerebral vascular calcificat ions. The calvarium is intact. Prior bilateral lens repair. The paranasal sinuses, mastoid air cells, and m iddle ear cavities are clear. IMPRESSION: No acute intracranial abnormality. ACT 112: Negative or not required by law. The above report was generated using voice recognition software. It may contain grammatical, syntax o r spelling errors. Electronically signed by: Tad Cardoso M.D. 05/26/2022 7:10 AM
--- NOTE | 2022-05-26 07:34 | CT Scan Report ---
CT angio neck with con, CT angio head w con CLINICAL HISTORY: 77 years-old Male with Stroke Like Symptoms. Acute strokelike symptoms COMPARISON STUDY: Head CT of same day TECHNIQUE: Following the IV administration of 120 of Optiray, CT angiogram of the head and neck was p erformed from the aortic arch to the skull apex. Images are reviewed in the axial, sagittal, and wilma nal planes. 3-D MIPS images are created and assessed. IV contrast was administered without complicati on. All measurements were calculated based on NASCET criteria. A dose lowering technique was utilize d adhering to the principles of ALARA. CT DOSE: 1211.58 mGy.cm FINDINGS: Atherosclerosis of the thoracic aortic arch. Patency of the innominate and imaged subclavian arteries . Atherosclerosis of the common carotid arteries without high-grade stenosis. There is moderate ather osclerotic plaque of the carotid bulbs and proximal cervical segments of the internal carotid arterie s resulting in less than 50% stenosis bilaterally. There is additional atherosclerotic plaque of the cavernous and clinoid segments without significant stenosis. Atherosclerotic plaque at the origin of the right vertebral artery results in approximately 50% stenosis. There is less than 50% stenosis at the origin of the left vertebral artery. High-grade stenosis of the distal V4 segment right vertebral artery. No flow identified within the V4 segment of the left vertebral artery. Mild multifocal lumin al narrowing of the diminutive basilar artery. Ectasia of the basilar tip measures 3 mm. Mild multifo kwan luminal narrowing of the right posterior cerebral artery. Cerebral venous sinuses are patent. The re is no abnormal intracranial enhancement. Lung apices are clear. Heterogeneous 1.9 cm right-sided thyroid nodule. Mild polypoid mucosal thicken ing of the left maxillary sinus. Degenerative changes of the spine. IMPRESSION: 1. High-grade stenosis of the V4 segment right vertebral artery with high-grade stenosis versus occlu arlet of the V4 segment left vertebral artery, age-indeterminate. This finding was called/faxed to the floor at time of dictation. 2. Atherosclerotic plaque of the carotid bulbs results in less than 50% stenosis bilaterally. 3. There is approximately 50% luminal narrowing at the origin of the right vertebral artery. ACT 112: Negative or not required by law. The above report was generated using voice recognition software. It may contain grammatical, syntax o r spelling errors. Electronically signed by: Tad Cardoso M.D. 05/26/2022 7:32 AM
[2022-05-26] MEDS ORDERED: LISINOPRIL/HCTZ 20/25MG 1 TAB PO SCH (09:00)
[2022-05-26] MEDS: LORATADINE 10 MG TAB PO SCH (09:02)
--- NOTE | 2022-05-26 09:03 | XRay Report ---
XR chest 1V portable HISTORY: 77 years-old Male Stroke Like Symptoms acute strokelike symptoms COMPARISON: CTA head neck of same day TECHNIQUE: Semierect AP view of the chest FINDINGS: Cardiac silhouette is enlarged. No pneumothorax, large pleural effusion or lobar airspace consolidati on. Mild interstitial coarsening is most pronounced in the left lung base. Degenerative changes of th e shoulders and spine. IMPRESSION: 1. Cardiomegaly without overt pulmonary edema. 2. Mild interstitial opacities, most pronounced within the left lung base are likely chronic. ACT 112: Negative or not required by law. The above report was generated using voice recognition software. It may contain grammatical, syntax o r spelling errors. Electronically signed by: Tad Cardoso M.D. 05/26/2022 9:02 AM
--- NOTE | 2022-05-26 09:16 | Electrocardiogram Report ---
Test Reason : Blood Pressure : / mmHG Vent. Rate : 084 BPM Atrial Rate : 084 BPM P-R Int : 160 ms QRS Dur : 084 ms QT Int : 362 ms P-R-T Axes : 050 001 012 degrees QTc Int : 427 ms Normal sinus rhythm Nondignostic inferior Q waves Abnormal ECG No previous ECGs available Confirmed by Yahir Dawson ([id number]) on 05/26/2022 9:15:45 AM Referred By: REFERRED SELF Confirmed By:Yahir Dawson
[2022-05-26] MEDS ORDERED: ASPIRIN 81 MG CHEW PO ONE (09:34)
[2022-05-26] MEDS ORDERED: LORazepam 1 MG in SYRINGE 0.5 ML IV PRN (09:38)
[2022-05-26] MEDS ORDERED: THIAMINE HCL 100 MG/ML 2 ML VIAL IM STA (10:00)
--- NOTE | 2022-05-26 10:25 | Neurology Consultation ---
Date of Consultation May 26, 2022 Assessment & Plan (1) Vertebral artery stenosis/occlusion: (2) Right arm weakness: (3) Alcohol intoxication: (4) Status post fall: Plan 77-year-old male with a recent fall out of bed, unable to get up due to generalized weakness, now with persistent proximal weakness of the right upper extremity and associated numbness and tingling to the right hand. No other focal neurologic signs or symptoms at this time. Patient's current weakness pattern is not highly suggestive of stroke, seems to be more consistent with transient compression of the right brachial plexus. Nonetheless, an acute infarct cannot be completely excluded. A compressive cervical myelopathy may not be completely excluded either. I also note that he has been found to have bilateral vertebral artery disease, high-grade stenosis of the right V4 segment with high-grade stenosis versus occlusion of the left V4 segment. The significance of these vascular lesions is not entirely clear at this time. Of course, vertebrobasilar insufficiency, brainstem infarct is not excluded. I agree that this patient will need a brain MRI for further assessment of the above issue. I also agree with initiation of daily low-dose aspirin. Would also recommend starting a statin, goal LDL less than 70. Would also recommend consultation with vascular surgery. However, vertebrobasilar disease is not typically addressed with procedures such as stenting or surgical bypass. Nonetheless, given the potential serious nature of significant bilateral vertebral artery disease, I think a consultation with vascular surgery is reasonable. Would also recommend an assessment with a neur ovascular specialist at a tertiary center, may need a conventional arteriogram. If the above brain MRI reveals an acute brainstem infarct, would not be unreasonable to consider urgent transfer to a tertiary center for this type of evaluation. If the brain MRI is negative for an acute infarct within the vertebrobasilar circulation, a semiurgent outpatient assessment would be reasonable. I would also recommend completion of an MRI of the cervical spine to further exclude cervical myelopathy as an alternative explanation for his weakness. To the extent that his weakness is due to transient neural compression/upper trunk brachial plexus, I would expect gradual improvement over the upcoming days to weeks. If the above MRI evaluation is unremarkable, and if his weakness persists, then it would not be unreasonable to obtain an outpatient EMG of the right upper limb. Would consider checking a total CK to evaluate for possible rhabdomyolysis given his clinical presentation. Patient will need counseling regarding alcohol cessation. History of Present Illness Reason for Consultation: RUE weakness Requesting Physician: Freddy Alcala MD Attending Physician: Freddy Alcala MD History of Present Illness The patient is a 77-year-old male who presented to the emergency department yesterday via ambulance. He had fallen out of bed approximately 4 hours prior, was unable to get up on his own, was crawling around on the floor. Had reported consuming at least 3 vodka drinks earlier that day, he does drink on a daily basis. He has exhibited persistent significant proximal weakness for the right upper extremity, no associated pain, mild numbness of the right hand, no weakness for the right leg or face. No headache or vision loss. No significant pain with attempts at moving the right upper limb passively. He did have an elevated alcohol level, 308 during his initial ED assessment. A high- sensitivity troponin was normal. A total CK was not completed. An initial CT of the head was negative for hemorrhage or acute process. CT angiography of the head and neck revealed a high-grade stenosis of the V4 segment of the right vertebral artery with high-grade stenosis versus occlusion of the V4 segment of the left vertebral artery, age-indeterminate. There is atherosclerotic plaque of the carotid bulbs resulting in less than 50% stenosis bilaterally. There is approximately 50% luminal narrowing at the origin of the right vertebral artery. Patient does not appear to be taking a statin or a blood thinner as an outpatient. His blood pressure was modestly elevated earlier this morning, improved currently. He was started on supplemental folate, thiamine, IV fluids, started on daily low-dose aspirin as well. Initial impression was of weakness due to nerve compression related to lying on the floor for prolonged period of time. However, now with identification of bilateral vertebral artery disease, heightened concern for symptomatic issue prompting neurology consultation. Allergies Allergy/AdvReac Type Severity Reaction Status Date / Time Sulfa (Sulfonamide Allergy Intermediate Rash Verified 05/25/22 21:10 Antibiotics) Home Medications Medication Instructions Recorded Confirmed Type cyclobenzaprine 5 mg tablet 5 mg PO HS PRN Spasms 09/05/19 05/25/22 History ketoconazole 2 % topical cream 1 applic topical DIRECTED PRN 09/05/19 05/25/22 History Skin Irritation loratadine 10 mg tablet 10 mg PO DAILY 11/17/19 08/06/22 History sildenafil 50 mg tablet 50 mg PO DIRECTED PRN Sexual 09/05/19 05/25/22 History Activity lisinopril 20 1 tab PO DAILY #90 tabs 04/18/22 05/25/22 Rx mg-hydrochlorothiazide 25 mg tablet Patient History Surgical History H/O colonoscopy (~2003) Family History Mother Alzheimer disease Father Alzheimer disease Social History Smoking Status: Never smoker Hx Alcohol Use: Yes Alcohol type: beer and hard liquor Hx Substance Use: No Preferred Language: Occitan Communication Ability: Effective 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 Beliefs That Will Affect Care: None marital status: Current Living Situation: Spouse Current Living Situation Comment: worries about balance current occupational status: retired Feels Safe at Home: Yes Assistive Devices: Glasses Review of Systems Constitutional: no fever and no chills Eyes: no blind spots and no diplopia Ear, Nose, Mouth, Throat: no hearing loss Respiratory: no cough and no dyspnea Cardiovascular: no chest pain and no palpitations Gastrointestinal: no nausea and no vomiting Genitourinary: no dysuria Musculoskeletal: no back pain, no neck pain and no myalgia Integumentary: no rash Neurologic: as per Subjective / HPI Psychiatric: no depression and no anxiety Hematologic / Lymphatic: no easy bleeding Exam (Neuro) Constitutional: well developed and well nourished; no acute distress Eyes: normal visual foreman by confrontation, PERRL, normal accommodation and EOM intact bilaterally; no fundoscopic abnormality, no nystagmus and no papilledema Cardiovascular: Vessels: normal carotid upstroke; no carotid bruit Neurologic: Oriented to:: Person, Place and Time Memory: Short Term Intact and Remote Intact Attention: Span Intact and Concentration Intact Language: Naming Objects and Repeating Phrases Speech Fluency: negative Dysarthria Speech Aphasia: negative Aphasia Fund of Knowledge: Current Events, Past History and Vocabulary Cranial Nerves: Normal II (Visual foreman full to confrontation, visual acuity normal), III, IV, (Pupils equal round reactive to light and accommodation, eye movements normal), V (Facial sensation intact), VII (There is no facial droop or weakness), VIII (Hearing intact), IX, X (Palate elevates to midline), XI (Shoulder shrug intact) and XII (Tongue protrudes to midline) Motor Strength: Normal Lower Extremities; negative Normal Upper Extremities (There is proximal weakness for the right upper extremity, inability to abduct the right upper limb, intact biceps, triceps, and distal motor function.) or Pronator Drift Motor Tone: Normal Lower Extremities and Normal Upper Extremities Muscle Bulk/Involuntary Movements: No Involuntary Movements; negative Muscle Atrophy Sensation: Light Touch Intact, Pain/Temperature Intact, Vibration Intact and Proprioception Intact Coordination: Normal and Finger-Nose Abnormal Laterality: Right; negative Limited Balance, Dysdiadochokinesia or Heel-Mclean Abnormal Deep Tendon Reflexes: Rt Triceps: 1+, Lt Triceps: 1+, Rt Biceps: 1+, Lt Biceps: 1+, Rt Brachioradialis: 1+, Lt Brachioradialis: 1+, Rt Patellar: 1+, Lt Patellar: 1+, Rt Ankle: 1+ and Lt Ankle: 1+ Special Tests: negative Babinski Present Details: Gait not tested in the context of patient's current neurological status. Results & Data ([facility]) Vital Signs (Past 12 Hours) Vital Signs Temp Pulse Pulse Pulse Resp BP Pulse Ox 05/26/22 08:54 36.8 C 76 19 124/82 94 05/26/22 06:19 36.8 C 70 20 143/78 H 95 05/26/22 06:17 91 H 05/26/22 05:31 36.8 C 70 20 143/78 H 95 05/26/22 03:37 86 18 181/81 H 96 05/26/22 00:08 84 17 148/84 H 96 O2 Del Method 05/26/22 08:54 Room Air 05/26/22 06:19 Room Air 05/26/22 06:17 05/26/22 05:31 Room Air 05/26/22 03:37 Room Air 05/26/22 00:08 Room Air Laboratory Results WBC 11.10, hemoglobin 14.7, hematocrit 41.7, MCV 97.2, platelet count 115, sodium 135, potassium 3.5, BUN 15, creatinine 1.01, glucose 100, calcium 8.8, magnesium 1.7, AST 33, ALT 25, triglycerides 63, cholesterol 200, LDL 111, VLDL 113, HDL 76, TSH 2.087, ethyl alcohol level 308.1. Diagnostic Findings Imaging is as described in the history of present illness, I independently reviewed the images and agree with the radiologist's interpretation. Electrocardiogram reveals a normal sinus rhythm, 84 bpm. Coding Level of Care Code 54165 Initial Inpt Care Lvl 3 Diagnoses Vertebral artery stenosis/occlusion I65.09 Right arm weakness R29.898 Alcohol intoxication F10.929 Status post fall Z91.81
[2022-05-26] MEDS ORDERED: FOLIC ACID 1 MG in SYRINGE 9.8 ML IV SCH (10:30)
[2022-05-26] MEDS ORDERED: SODIUM CHLORIDE 0.9% 500 ML IV SCH (10:45)
[2022-05-26] MEDS: THIAMINE HCL 100 MG in SYRINGE 9 ML IV SCH (10:54)
[2022-05-26] MEDS ORDERED: PANTOprazole 40 MG in SYRINGE 0 ML IV SCH (11:00)
[2022-05-26] MEDS ORDERED: LORazepam 1 MG in SYRINGE 0.5 ML IV STA (11:19)
--- NOTE | 2022-05-26 13:26 | Magnetic Resonance Report ---
MR brain wo con HISTORY: 77 years-old Male CVA acute strokelike symptoms COMPARISON: CT head 05/25/2022 TECHNIQUE: Multiplanar multisequence MRI of the brain was obtained without the use of IV contrast. FINDINGS: There is no restricted diffusion to suggest acute or subacute infarct unremarkable midline structures . Degenerative changes of the imaged cervical spine. No acute intracranial hemorrhage, midline shift, abnormal extra-axial collection, hydrocephalus or intracranial mass. No pathologic blooming artifact . Mesial temporal lobes are within normal limits. No acute seizure focus, cortical dysplasia or lay matter heterotopia. Involutional changes with mild to moderate T2/FLAIR hyperintense foci suggestive of chronic microvascular ischemic disease. Cerebral venous sinuses and major arterial flow voids appear patent. Mastoid air cells are clear. Min imal mucosal thickening of the paranasal sinuses. Prior bilateral lens repair. IMPRESSION: 1. No acute intracranial abnormality. No acute or subacute infarct. 2. Involutional changes with chronic microvascular ischemic disease. ACT 112: Negative or not required by law. The above report was generated using voice recognition software. It may contain grammatical, syntax o r spelling errors. Electronically signed by: Tad Cardoso M.D. 05/26/2022 1:24 PM
--- NOTE | 2022-05-26 13:59 | Magnetic Resonance Report ---
MR cervical spine wo con HISTORY: 77 years-old Male R UE weakness acute strokelike symptoms with right upper extremity weakne ss COMPARISON: Brain MRI of same day TECHNIQUE: Multiplanar multisequence MRI of the cervical spine was obtained without the use of IV con trast. FINDINGS: The imaged posterior fossa structures appear unremarkable. Signal within the brainstem, cervical and imaged thoracic spinal cord appears normal. No acute fracture, subluxation or endplate erosion. Mild to moderate marrow edema involves the right C4-C5 facets with trace associated facet effusion and mil d adjacent soft tissue edema. Multilevel disc desiccation. C2-C3: Uncovertebral hypertrophy with moderate left-sided facet arthrosis. Degenerative fusion of the right facets. No central canal or neural foraminal narrowing. C3-C4: Vertebral hypertrophy with moderate left and severe right facet arthrosis. Trace right facet e ffusion. The central canal is patent. Mild to moderate right with moderate left neural foraminal narr owing. C4-C5: Uncovertebral hypertrophy with small posterior annular disc bulge/disc osteophyte complex. Sev ere right with moderate left neural foraminal narrowing. Flattening of the ventral thecal sac without significant central canal stenosis. Severe right with moderate to severe left neural foraminal narro wing. C5-C6: Uncovertebral hypertrophy with small circumferential annular disc bulge/posterior disc osteoph yte complex. Severe right with moderate left facet arthrosis. Flattening of the ventral thecal sac wi thout significant central canal stenosis. Moderate right with [id number] left. C6-C7: Mild posterior intervertebral disc space narrowing with uncovertebral hypertrophy and small po sterior disc osteophyte complex. Moderate to severe facet arthrosis. The central canal is patent. Mil d to moderate left with mild right neural foraminal narrowing. C7-T1: Mild uncovertebral hypertrophy with moderate facet arthrosis. No central canal or neural kali inal narrowing. IMPRESSION: 1. No acute fracture. 2. Multilevel neural foraminal narrowing as above without significant central canal stenosis. 3. Marrow edema involving the right C4-C5 facets is likely on a degenerative basis. 4. Normal signal of the cervical spinal cord. ACT 112: Negative or not required by law. The above report was generated using voice recognition software. It may contain grammatical, syntax o r spelling errors. Electronically signed by: Tad Cardoso M.D. 05/26/2022 1:57 PM
[2022-05-26] MEDS: ACETAMINOPHEN 325 MG TAB PO PRN ×2 (15:13→19:46)
--- NOTE | 2022-05-26 16:03 | History & Physical Bridge Note ---
Date of Service May 26, 2022 History & Physical Bridge Note I have examined the patient, reviewed the History & Physical and in the interval since the performance of the History & Physical I have noted the following changes of clinical significance: Presentation after a fall; right sided weakness of which lower extremity weakness has resolved; persistent right upper extremity weakness MRI brainno CVA; noted significant vertebral diseaseaspirin added, statin added, lipid panel; vascular surgery consult Neurology consult noted and appreciated C-spine shows DJD but does not appear to be responsible for right upper extremity weakness that could be brachial plexus related Also, since alcohol abusecounseled on cessation; CIWA added Other minor lab abnormalities such as leukocytosis and hyponatremia can be observed
[2022-05-26] MEDS ORDERED: ATORVASTATIN 40 MG TAB PO SCH ×2 (21:00)
[2022-05-27] MEDS: ACETAMINOPHEN 325 MG TAB PO PRN (01:23)
[2022-05-27] MEDS ORDERED: MELATONIN 3 MG TAB PO PRN (01:44)
--- NOTE | 2022-05-27 07:57 | Hospitalist Progress Note ---
Date of Service May 27, 2022 Assessment & Plan (1) Right arm weakness: Plan: Improving subjective right arm weakness/resolved right leg weakness/status post fall out of bed while playing with dog at home. Alcohol level also elevated on admission CT head, MRI brain negative for acute stroke Per Neurology, patient's current weakness pattern is not highly suggestive of stroke, seems to be more consistent with transient compression of the right brachial plexus. Added ASA 81mg daily, lipid panel LDL 111 and low dose atorvastatin added Will need outpatient neurology follow up for conventional arteriogram Vascular consulted follow up 1 year outpatient for monitoring of carotids. suspect brachial plexus injury B12/folate also obtained given MCV elevation on admit, on daily thiamine/folic acid. Suspect underling B12 def (also noted recent April Allergy visit issues with balance) PT/OT consulted Patient lying on floor for unknown interval time Had difficulty moving right side of body in particular upon awakening Right leg examination normal Right arm with good supply manager strength, no neck pain, no shoulder pain, his arm is able to be passively lifted into full normal position, and is able to move it to full positioned but slowly actively I suspect he probably has a mild compression of nerve after lying on that side for and extended interval of time. We will just monitor him overnight. If symptoms are persistent in the morning will do MRI of brain and cervical spine Do not think that this is a stroke His history for this event is not completely reliable, as he has significant alcohol intake with alcohol level of 308 (2) Hypertension: Plan: BP stable Lisinopril/HCTZ on hold, got 500cc NSS Resume pending volume status (3) Alcohol intoxication: Plan: Alcohol level 308 upon admission, and reports daily use Suspect he will be discharged prior to any possibility of withdrawal, however, would put on AWSS protocol if patient remains in the hospital longer than lunchtime (4) Anxiety: (5) Inhibited sexual excitement: (6) Thrombocytopenia: Plan: chronic, seen by hematology in the past, felt related to chronic alcohol use (2 beers/2vodka per day) (7) Status post fall: (8) Hyponatremia: Plan: Na 135 on admit, TSH wnl likely related to etoh use as well as HCTZ for BP (on hold) and labs for AM pending Admission and Anticipated Discharge Date Admission Date: May 26, 2022 Results & Data Results & Data ([facility]) Vital Signs (Past 12 Hours) Vital Signs Temp Pulse Pulse Resp BP BP Pulse Ox 05/27/22 07:07 36.7 C 71 20 146/78 H 96 05/27/22 04:00 36.7 C 67 20 146/89 H 96 05/26/22 22:22 70 05/26/22 23:00 36.8 C 69 20 160/83 H 96 05/26/22 20:00 36.8 C 75 20 159/83 H 95 O2 Del Method 05/27/22 07:07 Room Air 05/27/22 04:00 Room Air 05/26/22 22:22 05/26/22 23:00 Room Air 05/26/22 20:00 Room Air Diagnostic Findings Chest X-Ray 05/25/22 20:18 XR chest 1V portable HISTORY: 77 years-old Male Stroke Like Symptoms acute strokelike symptoms COMPARISON: CTA head neck of same day TECHNIQUE: Semierect AP view of the chest FINDINGS: Cardiac silhouette is enlarged. No pneumothorax, large pleural effusion or lobar airspace consolidation. Mild interstitial coarsening is most pronounced in the left lung base. Degenerative changes of the shoulders and spine. IMPRESSION: 1. Cardiomegaly without overt pulmonary edema. 2. Mild interstitial opacities, most pronounced within the left lung base are likely chronic. ACT 112: Negative or not required by law. The above report was generated using voice recognition software. It may contain grammatical, syntax or spelling errors. Electronically signed by: Tad Cardoso M.D. 05/26/2022 9:[address] 05/25/22 20:18 CT head/brain wo con CLINICAL HISTORY: 77 years-old Male with Stroke Like Symptoms. Acute strokelike symptoms TECHNIQUE: Multiple axial CT images of the head were obtained without contrast. A dose lowering technique was utilized adhering to the principles of ALARA. COMPARISON: CTA head and neck of same day. FINDINGS: No acute intracranial hemorrhage, midline shift, intracranial mass, hydrocephalus, territorial ischemia or abnormal extra-axial collection. Age- related involutional changes. Cerebral vascular calcifications. The calvarium is intact. Prior bilateral lens repair. The paranasal sinuses, mastoid air cells, and middle ear cavities are clear. IMPRESSION: No acute intracranial abnormality. ACT 112: Negative or not required by law. The above report was generated using voice recognition software. It may contain grammatical, syntax or spelling errors. Electronically signed by: Tad Cardoso M.D. 05/26/2022 7:10 AM Head CTA 05/25/22 20:18 CT angio neck with con, CT angio head w con CLINICAL HISTORY: 77 years-old Male with Stroke Like Symptoms. Acute strokelike symptoms COMPARISON STUDY: Head CT of same day TECHNIQUE: Following the IV administration of 120 of Optiray, CT angiogram of the head and neck was performed from the aortic arch to the skull apex. Images are reviewed in the axial, sagittal, and coronal planes. 3-D MIPS images are created and assessed. IV contrast was administered without complication. All measurements were calculated based on NASCET criteria. A dose lowering technique was utilized adhering to the principles of ALARA. CT DOSE: 1211.58 mGy.cm FINDINGS: Atherosclerosis of the thoracic aortic arch. Patency of the innominate and imaged subclavian arteries. Atherosclerosis of the common carotid arteries without high-grade stenosis. There is moderate atherosclerotic plaque of the carotid bulbs and proximal cervical segments of the internal carotid arteries resulting in less than 50% stenosis bilaterally. There is additional atherosclerotic plaque of the cavernous and clinoid segments without significant stenosis. Atherosclerotic plaque at the origin of the right vertebral artery results in approximately 50% stenosis. There is less than 50% stenosis at the origin of the left vertebral artery. High-grade stenosis of the distal V4 segment right vertebral artery. No flow identified within the V4 segment of the left vertebral artery. Mild multifocal luminal narrowing of the diminutive basilar artery. Ectasia of the basilar tip measures 3 mm. Mild multifocal luminal narrowing of the right posterior cerebral artery. Cerebral venous sinuses are patent. There is no abnormal intracranial enhancement. Lung apices are clear. Heterogeneous 1.9 cm right-sided thyroid nodule. Mild polypoid mucosal thickening of the left maxillary sinus. Degenerative changes of the spine. IMPRESSION: 1. High-grade stenosis of the V4 segment right vertebral artery with high-grade stenosis versus occlusion of the V4 segment left vertebral artery, age- indeterminate. This finding was called/faxed to the floor at time of dictation. 2. Atherosclerotic plaque of the carotid bulbs results in less than 50% stenosis bilaterally. 3. There is approximately 50% luminal narrowing at the origin of the right vertebral artery. ACT 112: Negative or not required by law. The above report was generated using voice recognition software. It may contain grammatical, syntax or spelling errors. Electronically signed by: Tad Cardoso M.D. 05/26/2022 7:32 AM Neck CTA 05/25/22 20:18 CT angio neck with con, CT angio head w con CLINICAL HISTORY: 77 years-old Male with Stroke Like Symptoms. Acute strokelike symptoms COMPARISON STUDY: Head CT of same day TECHNIQUE: Following the IV administration of 120 of Optiray, CT angiogram of the head and neck was performed from the aortic arch to the skull apex. Images are reviewed in the axial, sagittal, and coronal planes. 3-D MIPS images are created and assessed. IV contrast was administered without complication. All measurements were calculated based on NASCET criteria. A dose lowering technique was utilized adhering to the principles of ALARA. CT DOSE: 1211.58 mGy.cm FINDINGS: Atherosclerosis of the thoracic aortic arch. Patency of the innominate and imaged subclavian arteries. Atherosclerosis of the common carotid arteries without high-grade stenosis. There is moderate atherosclerotic plaque of the carotid bulbs and proximal cervical segments of the internal carotid arteries resulting in less than 50% stenosis bilaterally. There is additional atherosclerotic plaque of the cavernous and clinoid segments without significant stenosis. Atherosclerotic plaque at the origin of the right vertebral artery results in approximately 50% stenosis. There is less than 50% stenosis at the origin of the left vertebral artery. High-grade stenosis of the distal V4 segment right vertebral artery. No flow identified within the V4 segment of the left vertebral artery. Mild multifocal luminal narrowing of the diminutive basilar artery. Ectasia of the basilar tip measures 3 mm. Mild multifocal luminal narrowing of the right posterior cerebral artery. Cerebral venous sinus es are patent. There is no abnormal intracranial enhancement. Lung apices are clear. Heterogeneous 1.9 cm right-sided thyroid nodule. Mild polypoid mucosal thickening of the left maxillary sinus. Degenerative changes of the spine. IMPRESSION: 1. High-grade stenosis of the V4 segment right vertebral artery with high-grade stenosis versus occlusion of the V4 segment left vertebral artery, age-in determinate. This finding was called/faxed to the floor at time of dictation. 2. Atherosclerotic plaque of the carotid bulbs results in less than 50% stenosis bilaterally. 3. There is approximately 50% luminal narrowing at the origin of the right vertebral artery. ACT 112: Negative or not required by law. The above report was generated using voice recognition software. It may contain grammatical, syntax or spelling errors. Electronically signed by: Tad Cardoso M.D. 05/26/2022 7:32 AM Brain MRI 05/26/22 09:34 MR brain wo con HISTORY: 77 years-old Male CVA acute strokelike symptoms COMPARISON: CT head 05/25/2022 TECHNIQUE: Multiplanar multisequence MRI of the brain was obtained without the use of IV contrast. FINDINGS: There is no restricted diffusion to suggest acute or subacute infarct unremarkable midline structures. Degenerative changes of the imaged cervical spine. No acute intracranial hemorrhage, midline shift, abnormal extra-axial collection, hydrocephalus or intracranial mass. No pathologic blooming artifact. Mesial temporal lobes are within normal limits. No acute seizure focus, cortical dysplasia or lay matter heterotopia. Involutional changes with mild to moderate T2/FLAIR hyperintense foci suggestive of chronic microvascular ischemic disease. Cerebral venous sinuses and major arterial flow voids appear patent. Mastoid air cells are clear. Minimal mucosal thickening of the paranasal sinuses. Prior bilateral lens repair. IMPRESSION: 1. No acute intracranial abnormality. No acute or subacute infarct. 2. Involutional changes with chronic microvascular ischemic disease. ACT 112: Negative or not required by law. The above report was generated using voice recognition software. It may contain grammatical, syntax or spelling errors. Electronically signed by: Tad Cardoso M.D. 05/26/2022 1:24 PM Cervical Spine MRI 05/26/22 12:34 MR cervical spine wo con HISTORY: 77 years-old Male R UE weakness acute strokelike symptoms with right upper extremity weakness COMPARISON: Brain MRI of same day TECHNIQUE: Multiplanar multisequence MRI of the cervical spine was obtained without the use of IV contrast. FINDINGS: The imaged posterior fossa structures appear unremarkable. Signal within the brainstem, cervical and imaged thoracic spinal cord appears normal. No acute fracture, subluxation or endplate erosion. Mild to moderate marrow edema involves the right C4-C5 facets with trace associated facet effusion and mild adjacent soft tissue edema. Multilevel disc desiccation. C2-C3: Uncovertebral hypertrophy with moderate left-sided facet arthrosis. Degenerative fusion of the right facets. No central canal or neural foraminal narrowing. C3-C4: Vertebral hypertrophy with moderate left and severe right facet arthrosis. Trace right facet effusion. The central canal is patent. Mild to moderate right with moderate left neural foraminal narrowing. C4-C5: Uncovertebral hypertrophy with small posterior annular disc bulge/disc osteophyte complex. Severe right with moderate left neural foraminal narrowing. Flattening of the ventral thecal sac without significant central canal stenosis. Severe right with moderate to severe left neural foraminal narrowing. C5-C6: Uncovertebral hypertrophy with small circumferential annular disc bulge/posterior disc osteophyte complex. Severe right with moderate left facet arthrosis. Flattening of the ventral thecal sac without significant central canal stenosis. Moderate right with [id number] left. C6-C7: Mild posterior intervertebral disc space narrowing with uncovertebral hypertrophy and small posterior disc osteophyte complex. Moderate to severe facet arthrosis. The central canal is patent. Mild to moderate left with mild right neural foraminal narrowing. C7-T1: Mild uncovertebral hypertrophy with moderate facet arthrosis. No central canal or neural foraminal narrowing. IMPRESSION: 1. No acute fracture. 2. Multilevel neural foraminal narrowing as above without significant central canal stenosis. 3. Marrow edema involving the right C4-C5 facets is likely on a degenerative b asis. 4. Normal signal of the cervical spinal cord. ACT 112: Negative or not required by law. The above report was generated using voice recognition software. It may contain grammatical, syntax or spelling errors. Electronically signed by: Tad Cardoso M.D. 05/26/2022 1:57 PM PG Care Time/CCT Total # of Minutes Spent Total Time Spent with Patient: Total time spent is greater than 50% in coordination of care (as documented) at patient's floor/unit and/or counseling patient: Coding Diagnoses Right arm weakness R29.898 Hypertension I10 Alcohol intoxication F10.929 Anxiety F41.9 Inhibited sexual excitement F52.8 Thrombocytopenia D69.6 Status post fall Z91.81 Hyponatremia E87.1
[2022-05-27] MEDS: THIAMINE HCL 100 MG in SYRINGE 9 ML IV SCH (08:36)
[2022-05-27] MEDS: LORATADINE 10 MG TAB PO SCH (08:36)
[2022-05-27] MEDS ORDERED: ASPIRIN 81 MG ECTAB PO SCH (09:00)
[2022-05-27] MEDS ORDERED: PANTOprazole 40 MG TAB PO SCH (09:00)
[2022-05-27] MEDS ORDERED: FOLIC ACID 1 MG TAB PO SCH (09:00)
[2022-05-27] MEDS ORDERED: LORazepam 0.5 MG TAB SL STA (09:32)
[2022-05-27 09:43] LABS: Hematocrit (blood only) 42.2 % (40.1-51.0); Hemoglobin 14.8 g/dl (14.0-18.0); Mean Corpuscular Hemoglobin 34.3 pg (25.0-34.0); Mean Corpuscular Hgb Conc 35.1 g/dL (32.0-36.0); Mean Corpuscular Volume 97.9 fL (80.0-100.0); Mean Platelet Volume 12.7 fL (9.4-12.4); Platelet Count 97 K/uL (130-400); RDW Coefficient of Variation 11.5 % (11.5-14.5); Red Blood Count 4.31 M/uL (4.63-6.08); White Blood Count 9.51 K/ul (4.8-10.8)
[2022-05-27 10:02] LABS: Albumin Globulin Ratio 1.3 (0.9-2); Albumin Level 3.6 gm/dl (3.4-5.0); BUN Creatinine Ratio 23.6 (10-20); Bilirubin,Total 1.7 mg/dl (0.2-1.0); Calcium 9.1 mg/dl (8.5-10.1); Chol HDL Ratio 2.6 (0-5); Creatinine Clr Calc Pharmacy 97.6 ml/min; Est GFR (African American) 105.8 ml/min; Est GFR (Non-African American) 91.3 ml/min; Globulin 2.8 gm/dl (2.5-4.0); Magnesium 1.5 mg/dl (1.7-2.4); Phosphorus 1.9 mg/dl (2.5-4.9); Potassium 3.6 mmol/L (3.5-5.1); Total Protein 6.4 gm/dl (6.0-8.3)
[2022-05-27 10:14] LABS: Basophils # (auto) 0.03 K/uL (0-0.2); Basophils % (auto) 0.3 %; Eosinophils # (auto) 0.03 K/uL (0-0.50); Eosinophils % (auto) 0.3 %; Immature Granulocytes # (auto) 0.02 K/uL (0.00-0.02); Immature Granulocytes % (auto) 0.2 %; Lymphocytes # (auto) 1.57 K/uL (1.2-3.4); Lymphocytes % (auto) 16.5 %; Monocytes # (auto) 0.92 K/uL (0.24-0.82); Monocytes % (auto) 9.7 %; Neutrophils # (auto) 6.94 K/uL (1.4-6.5)
[2022-05-27 10:23] LABS: Folate (Folic Acid) > 22.30 ng/ml (>5.38)
[2022-05-27 10:24] LABS: Vitamin B12 1048 pg/ml (180-914)
[2022-05-27] MEDS ORDERED: CYCLOBENZAPRINE HCL 5 MG TAB PO PRN (11:20)
[2022-05-27] MEDS ORDERED: lisinopril 20 MG TAB PO STA (11:30)
[2022-05-27] MEDS: MAGNESIUM SULFATE / D5W 1 GM/100 ML BAG IV SCH ×3 (12:08→17:17)
[2022-05-27] MEDS ORDERED: Nursing to Pharmacy Communication SCH (12:15)
--- NOTE | 2022-05-27 12:39 | Consultation ---
Date of Consultation May 27, 2022 Assessment & Plan (1) Carotid stenosis, bilateral: I would recommend follow up for his carotid stenosis in one year. We will arrange this in our office. 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 Referral to a neurovascular interventionalist may be beneficial for evaluation although doubt anything would be done at this time being he is asymptomatic. His upper arm weakness may be secondary for the was he was laying with pressure on the brachial plexus or compression of the nerve root from the C spine. Thank you very much for letting us participate in the care of this patient. We will see him in one year for follow up. History of Present Illness Reason for Consultation: BABATUNDE stevens Attending Physician: William Chan History of Present Illness This is a 77 yo male who came to the ED after falling out of bed and laying face down on the floor for about 4 hours. He had been drinking vodka drinks earlier in the day. he is not a daily drinker. When he awoke he could not move his right upper extremity. He denies facial weakness or leg weakness. He denies any visual loss. He denied dizziness or headache. He denies any previous episodes of weakness. He denies any episodes of dizziness or syncope. He denies any upper extremity claudication. He denies any lower extremity claudication. He does not take a statin of blood thinners. Allergies Allergy/AdvReac Type Severity Reaction Status Date / Time Sulfa (Sulfonamide Allergy Intermediate Rash Verified 05/25/22 21:10 Antibiotics) Home Medications Medication Instructions Recorded Confirmed Type cyclobenzaprine 5 mg tablet 5 mg PO HS PRN Spasms 09/05/19 05/25/22 History ketoconazole 2 % topical cream 1 applic topical DIRECTED PRN 09/05/19 05/25/22 History Skin Irritation loratadine 10 mg tablet 10 mg PO DAILY 09/05/19 05/25/22 History sildenafil 50 mg tablet 50 mg PO DIRECTED PRN Sexual 09/05/19 05/25/22 History Activity lisinopril 20 1 tab PO DAILY #90 tabs 04/18/22 05/25/22 Rx mg-hydrochlorothiazide 25 mg tablet thiamine HCl (vitamin B1) 100 mg 200 mg PO DAILY 30 days #60 tabs 05/27/22 Rx tablet Patient History Medical History Anxiety Hypertension Thrombocytopenia Surgical History H/O colonoscopy (~2003) Family History Mother Alzheimer disease Father Alzheimer disease Social History Smoking Status: Never smoker Hx Alcohol Use: Yes Alcohol type: beer and hard liquor Hx Substance Use: No Preferred Language: Venezuelan Communication Ability: Effective Public [employer] Required: No Beliefs That Will Affect Care: None marital status: Current Living Situation: Spouse Current Living Situation Comment: worries about balance current occupational status: retired Feels Safe at Home: Yes Assistive Devices: Glasses Review of Systems Review of Systems: All systems reviewed & are unremarkable except as noted in HPI & below Physical Exam Constitutional: WD/WN, vitals as above Eyes: PERRL ENMT: Ears: no hearing impairment Respiratory: normal respiratory effort; no respiratory distress Cardiovascular: Rate/Rhythm: regular rate and regular rhythm Vessels: femoral pulses present and radial pulses present Extremities: normal capillary refill Gastrointestinal (Abdomen): Inspection/Auscultation: abdomen normal to inspection Percussion/Palpation: abdomen soft; abdomen nontender Musculoskeletal: Extremities: extremities normal to inspection and strength 5/5 throughout (except for proximal right upper extremity) Neurologic: CN's II-XI intact bilaterally and moves all extremities Motor/Sensory: no sensory deficit Cranial Nerves: EOM intact bilaterally, normal facial strength, tongue midline and normal hearing Coordination: + abnormal axfoga-ip-[id number] test and + abnormal axkt-uk-[id number] test Psychiatric: Orientation: alert and oriented x 3 Speech: normal rate/rhythm/volume of speech Affect: euthymic affect Results & Data ([facility]) Vital Signs (Past 12 Hours) Vital Signs Temp Pulse Pulse Resp BP BP Pulse Ox 05/27/22 11:00 36.4 C L 73 20 160/96 H 91 05/27/22 10:41 76 05/27/22 07:07 36.7 C 71 20 146/78 H 96 05/27/22 04:00 36.7 C 67 20 146/89 H 96 O2 Del Method 05/27/22 11:00 Room Air 05/27/22 10:41 05/27/22 07:07 Room Air 05/27/22 04:00 Room Air Diagnostic Findings MR brain wo con HISTORY: 77 years-old Male CVA acute strokelike symptoms COMPARISON: CT head 05/25/2022 TECHNIQUE: Multiplanar multisequence MRI of the brain was obtained without the use of IV contrast. FINDINGS: There is no restricted diffusion to suggest acute or subacute infarct unremarkable midline structures. Degenerative changes of the imaged cervical spine. No acute intracranial hemorrhage, midline shift, abnormal extra-axial collection, hydrocephalus or intracranial mass. No pathologic blooming artifact. Mesial temporal lobes are within normal limits. No acute seizure focus, cortical dysplasia or lay matter heterotopia. Involutional changes with mild to moderate T2/FLAIR hyperintense foci suggestive of chronic microvascular ischemic disease. Cerebral venous sinuses and major arterial flow voids appear patent. Mastoid air cells are clear. Minimal mucosal thickening of the paranasal sinuses. Prior bilateral lens repair. IMPRESSION: 1. No acute intracranial abnormality. No acute or subacute infarct. 2. Involutional changes with chronic microvascular ischemic disease. CT angio neck with con, CT angio head w con CLINICAL HISTORY: 77 years-old Male with Stroke Like Symptoms. Acute strokelike symptoms COMPARISON STUDY: Head CT of same day TECHNIQUE: Following the IV administration of 120 of Optiray, CT angiogram of the head and neck was performed from the aortic arch to the skull apex. Images are reviewed in the axial, sagittal, and coronal planes. 3-D MIPS images are created and assessed. IV contrast was administered without complication. All measurements were calculated based on NASCET criteria. A dose lowering technique was utilized adhering to the principles of ALARA. CT DOSE: 1211.58 mGy.cm FINDINGS: Atherosclerosis of the thoracic aortic arch. Patency of the innominate and imaged subclavian arteries. Atherosclerosis of the common carotid arteries without high-grade stenosis. There is moderate atherosclerotic plaque of the carotid bulbs and proximal cervical segments of the internal carotid arteries resulting in less than 50% stenosis bilaterally. There is additional atherosclerotic plaque of the cavernous and clinoid segments without significant stenosis. Atherosclerotic plaque at the origin of the right vertebral artery results in approximately 50% stenosis. There is less than 50% stenosis at the origin of the left vertebral artery. High-grade stenosis of the distal V4 segment right vertebral artery. No flow identified within the V4 segment of the left vertebral artery. Mild multifocal luminal narrowing of the diminutive basilar artery. Ectasia of the basilar tip measures 3 mm. Mild multifocal luminal narrowing of the right posterior cerebral artery. Cerebral venous sinuses are patent. There is no abnormal intracranial enhancement. Lung apices are clear. Heterogeneous 1.9 cm right-sided thyroid nodule. Mild polypoid mucosal thickening of the left maxillary sinus. Degenerative changes of the spine. IMPRESSION: 1. High-grade stenosis of the V4 segment right vertebral artery with high-grade stenosis versus occlusion of the V4 segment left vertebral artery, age- indeterminate. This finding was called/faxed to the floor at time of dictation. 2. Atherosclerotic plaque of the carotid bulbs results in less than 50% stenosis bilaterally. 3. There is approximately 50% luminal narrowing at the origin of the right vertebral artery. MR cervical spine wo con HISTORY: 77 years-old Male R UE weakness acute strokelike symptoms with right upper extremity weakness COMPARISON: Brain MRI of same day TECHNIQUE: Multiplanar multisequence MRI of the cervical spine was obtained without the use of IV contrast. FINDINGS: The imaged posterior fossa structures appear unremarkable. Signal within the brainstem, cervical and imaged thoracic spinal cord appears normal. No acute fracture, subluxation or endplate erosion. Mild to moderate marrow edema involves the right C4-C5 facets with trace associated facet effusion and mild adjacent soft tissue edema. Multilevel disc desiccation. C2-C3: Uncovertebral hypertrophy with moderate left-sided facet arthrosis. Degenerative fusion of the right facets. No central canal or neural foraminal narrowing. C3-C4: Vertebral hypertrophy with moderate left and severe right facet arthrosis. Trace right facet effusion. The central canal is patent. Mild to moderate right with moderate left neural foraminal narrowing. C4-C5: Uncovertebral hypertrophy with small posterior annular disc bulge/disc osteophyte complex. Severe right with moderate left neural foraminal narrowing. Flattening of the ventral thecal sac without significant central canal stenosis. Severe right with moderate to severe left neural foraminal narrowing. C5-C6: Uncovertebral hypertrophy with small circumferential annular disc bulge/posterior disc osteophyte complex. Severe right with moderate left facet arthrosis. Flattening of the ventral thecal sac without significant central canal stenosis. Moderate right with [id number] left. C6-C7: Mild posterior intervertebral disc space narrowing with uncovertebral hypertrophy and small posterior disc osteophyte complex. Moderate to severe facet arthrosis. The central canal is patent. Mild to moderate left with mild right neural foraminal narrowing. C7-T1: Mild uncovertebral hypertrophy with moderate facet arthrosis. No central canal or neural foraminal narrowing. IMPRESSION: 1. No acute fracture. 2. Multilevel neural foraminal narrowing as above without significant central canal stenosis. 3. Marrow edema involving the right C4-C5 facets is likely on a degenerative basis. 4. Normal signal of the cervical spinal cord.
[2022-05-27] MEDS ORDERED: DICLOFENAC SOD 1% GEL 100 GM TUBE EXT SCH (13:00)
--- NOTE | 2022-05-27 13:44 | XCELERA ---
[id number]
--- NOTE | 2022-05-27 13:49 | XRay Report ---
XR hip RT 2V w pelvis CLINICAL HISTORY: R hip/low back pain s/p fall, eval fx. COMPARISON STUDY: No previous studies for comparison. TECHNIQUE: AP pelvis and 2 right hip views FINDINGS: Bones: The bones are osteopenic. There is no evidence for an acute fracture or dislocation. There is no lytic or blastic lesion. Joints: There is mild narrowing of the joint spaces superiorly, bilaterally. The bones are in anatomi c alignment. Lumbar spine: The lower lumbar spine was included on the AP view pelvis and demonstrates degenerative change. Soft tissues: There is no focal soft tissue abnormality. There is no radiopaque foreign body. IMPRESSION: 1. No acute osseous pathology. 2. Osteopenia and osteoarthritis. ACT 112: Negative or not required by law. Electronically signed by: Rick Stanley M.D. 05/27/2022 1:47 PM
[2022-05-27] MEDS ORDERED: ATORVASTATIN 40 MG TAB PO SCH (14:00)
--- NOTE | 2022-05-27 14:58 | Discharge Summary ---
Date of Service May 27, 2022 Admission HPI Per Admitting Provider Chief Complaint: The patient presents to the emergency department after falling out of bed while playing with his dog, he was on the floor for unknown period of time, thinking that it was a least 4 hours, and had difficulty moving his right arm and right leg. Upon arrival by EMS, they reported that his right arm and both lower legs were quite weak and almost immobile at first, by the time the patient arrived to the emergency department, his legs were improved but his right arm was still feeling somewhat weak. Primary Care Provider: Emanuel Crump MD The patient is a 77-year-old male with a past medical history including nontoxic diffuse colloid goiter, hypertension, hyperlipidemia, heel spur, hearing loss, glaucoma, Dupuytren's contracture, anxiety and allergic rhinitis. Who presents with symptoms as noted above. It was also noted that he did not have any facial droop, difficulty with speech or swallowing. Reports drinking alcohol daily basis, and alcohol level in the emergency department was 308. CT scan of head without contrast was negative, CTA head was negative, CTA of neck showed mild stenosis of the origin of both the right vertebral and left vertebral arteries with normal flow. Admission Exam Per Admitting Provider The patient is awake, alert and oriented 3, well developed and well nourished, normocephalic and atraumatic, lying in bed and in no acute distress. HEENT--PERRL, EOMI, mucous membranes and oropharynx dry. Neck--supple. No JVD. No bruits. Thyroid normal, trachea midline, no ad enopathy. Heart--normal S1 and S2. No murmurs, rubs or gallops. Lungs--clear bilaterally, no respiratory distress, no accessory muscle use. Abdomen--normal bowel sounds and soft. Nontender. Nondistended, no hernias or masses, no organomegaly. Extremities--no cyanosis or clubbing. No edema. There are good distal pulses b/l. Dermatologic--normal skin turgor, normal color, no abnormal lymph nodes, no rash. Neurologic--cranial nerves II through XII grossly intact. Rheumatologic--normal range of motion, except for decreased ability to lift right arm, being able to slowly lifted to normal range compared to normal speed and amplitude of left arm. Member Services Coordinator strength normal bilaterally Psychiatric--normal affect. Principal Diagnosis RUE Weakness Discharge Exam General: WD/WN male sitting up in chair, NAD HEENT; head normocephalic, atraumatic, mmm, trachea midline without deviation Resp: CTAB, no w/c/r, on room air CV: RRR, no m/r/g, trace pedal dependent edema, no calf tenderness, cap refill wnl GI: +BS, nontender, no guarding/rigidity : no garcia, no CVA tenderness MSK/Neuro: moves all extremities, foreign legal consultant strength equal, decreased strength active motion with abduction at the shoulder/extension compared to the left and inability to hold against resistance, pulses palpable, LE strength equal bilaterally, normal sinha-heel testing Skin: warm,dry, open lesion to toe with serous fluid, nontender, no erythema/streaking Discharge Data Allergies Allergy/AdvReac Type Severity Reaction Status Date / Time Sulfa (Sulfonamide Allergy Intermediate Rash Verified 05/25/22 21:10 Antibiotics) Consultations 05/26/22 02:28 ED Decision to Admit Stat 05/26/22 09:34 Consult Neurology Routine 05/26/22 12:35 Consult Vascular Surgery Routine Ordered Studies Chest X-Ray 05/25/22 20:18 XR chest 1V portable HISTORY: 77 years-old Male Stroke Like Symptoms acute strokelike symptoms COMPARISON: CTA head neck of same day TECHNIQUE: Semierect AP view of the chest FINDINGS: Cardiac silhouette is enlarged. No pneumothorax, large pleural effusion or lobar airspace consolidation. Mild interstitial coarsening is most pronounced in the left lung base. Degenerative changes of the shoulders and spine. IMPRESSION: 1. Cardiomegaly without overt pulmonary edema. 2. Mild interstitial opacities, most pronounced within the left lung base are likely chronic. ACT 112: Negative or not required by law. The above report was generated using voice recognition software. It may contain grammatical, syntax or spelling errors. Electronically signed by: Tad Cardoso M.D. 05/26/2022 9:[address] 05/25/22 20:18 CT head/brain wo con CLINICAL HISTORY: 77 years-old Male with Stroke Like Symptoms. Acute strokelike symptoms TECHNIQUE: Multiple axial CT images of the head were obtained without contrast. A dose lowering technique was utilized adhering to the principles of ALARA. COMPARISON: CTA head and neck of same day. FINDINGS: No acute intracranial hemorrhage, midline shift, intracranial mass, hydr ocephalus, territorial ischemia or abnormal extra-axial collection. Age-related involutional changes. Cerebral vascular calcifications. The calvarium is intact. Prior bilateral lens repair. The paranasal sinuses, mastoid air cells, and middle ear cavities are clear. IMPRESSION: No acute intracranial abnormality. ACT 112: Negative or not required by law. The above report was generated using voice recognition software. It may contain grammatical, syntax or spelling errors. Electronically signed by: Tad Cardoso M.D. 05/26/2022 7:10 AM Head CTA 05/25/22 20:18 CT angio neck with con, CT angio head w con CLINICAL HISTORY: 77 years-old Male with Stroke Like Symptoms. Acute strokelike symptoms COMPARISON STUDY: Head CT of same day TECHNIQUE: Following the IV administration of 120 of Optiray, CT angiogram of the head and neck was performed from the aortic arch to the skull apex. Images are reviewed in the axial, sagittal, and coronal planes. 3-D MIPS images are created and assessed. IV contrast was administered without complication. All measurements were calculated based on NASCET criteria. A dose lowering technique was utilized adhering to the principles of ALARA. CT DOSE: 1211.58 mGy.cm FINDINGS: Atherosclerosis of the thoracic aortic arch. Patency of the innominate and imaged subclavian arteries. Atherosclerosis of the common carotid arteries without high-grade stenosis. There is moderate atherosclerotic plaque of the carotid bulbs and proximal cervical segments of the internal carotid arteries resulting in less than 50% stenosis bilaterally. There is additional atherosclerotic plaque of the cavernous and clinoid segments without significant stenosis. Atherosclerotic plaque at the origin of the right vertebral artery results in approximately 50% stenosis. There is less than 50% stenosis at the origin of the left vertebral artery. High-grade stenosis of the distal V4 segment right vertebral artery. No flow identified within the V4 segment of the left vertebral artery. Mild multifocal luminal narrowing of the diminutive basilar artery. Ectasia of the basilar tip measures 3 mm. Mild multifocal lumina l narrowing of the right posterior cerebral artery. Cerebral venous sinuses are patent. There is no abnormal intracranial enhancement. Lung apices are clear. Heterogeneous 1.9 cm right-sided thyroid nodule. Mild polypoid mucosal thickening of the left maxillary sinus. Degenerative changes of the spine. IMPRESSION: 1. High-grade stenosis of the V4 segment right vertebral artery with high-grade stenosis versus occlusion of the V4 segment left vertebral artery, age- indeterminate. This finding was called/faxed to the floor at time of dictation. 2. Atherosclerotic plaque of the carotid bulbs results in less than 50% stenosis bilaterally. 3. There is approximately 50% luminal narrowing at the origin of the right vertebral artery. ACT 112: Negative or not required by law. The above report was generated using voice recognition software. It may contain grammatical, syntax or spelling errors. Electronically signed by: Tad Cardoso M.D. 05/26/2022 7:32 AM Neck CTA 05/25/22 20:18 CT angio neck with con, CT angio head w con CLINICAL HISTORY: 77 years-old Male with Stroke Like Symptoms. Acute strokelike symptoms COMPARISON STUDY: Head CT of same day TECHNIQUE: Following the IV administration of 120 of Optiray, CT angiogram of the head and neck was performed from the aortic arch to the skull apex. Images are reviewed in the axial, sagittal, and coronal planes. 3-D MIPS images are created and assessed. IV contrast was administered without complication. All measurements were calculated based on NASCET criteria. A dose lowering technique was utilized adhering to the principles of ALARA. CT DOSE: 1211.58 mGy.cm FINDINGS: Atherosclerosis of the thoracic aortic arch. Patency of the innominate and imaged subclavian arteries. Atherosclerosis of the common carotid arteries without high-grade stenosis. There is moderate atherosclerotic plaque of the carotid bulbs and proximal cervical segments of the internal carotid arteries resulting in less than 50% stenosis bilaterally. There is additional atherosclerotic plaque of the cavernous and clinoid segments without significant stenosis. Atherosclerotic plaque at the origin of the right vertebral artery results in approximately 50% stenosis. There is less than 50% stenosis at the origin of the left vertebral artery. High-grade stenosis of the distal V4 segment right vertebral artery. No flow identified within the V4 segment of the left vertebral artery. Mild multifocal luminal narrowing of the diminutive basilar artery. Ectasia of the basilar tip measures 3 mm. Mild multifocal luminal narrowing of the right posterior cerebral artery. Cerebral venous sinuses are patent. There is no abnormal intracranial enhancement. Lung apices are clear. Heterogeneous 1.9 cm right-sided thyroid nodule. Mild polypoid mucosal thickening of the left maxillary sinus. Degenerative changes of the spine. IMPRESSION: 1. High-grade stenosis of the V4 segment right vertebral artery with high-grade stenosis versus occlusion of the V4 segment left vertebral artery, age- indeterminate. This finding was called/faxed to the floor at time of dictation. 2. Atherosclerotic plaque of the carotid bulbs results in less than 50% stenosis bilaterally. 3. There is approximately 50% luminal narrowing at the origin of the right vertebral artery. ACT 112: Negative or not required by law. The above report was generated using voice recognition software. It may contain grammatical, syntax or spelling errors. Electronically signed by: Tad Cardoso M.D. 05/26/2022 7:32 AM Brain MRI 05/26/22 09:34 MR brain wo con HISTORY: 77 years-old Male CVA acute strokelike symptoms COMPARISON: CT head 05/25/2022 TECHNIQUE: Multiplanar multisequence MRI of the brain was obtained without the use of IV contrast. FINDINGS: There is no restricted diffusion to suggest acute or subacute infarct unremarkable midline structures. Degenerative changes of the imaged cervical spine. No acute intracranial hemorrhage, midline shift, abnormal extra-axial collection, hydrocephalus or intracranial mass. No pathologic blooming artifact. Mesial temporal lobes are within normal limits. No acute seizure focus, cortical dysplasia or lay matter heterotopia. Involutional changes with mild to moderate T2/FLAIR hyperintense foci suggestive of chronic microvascular ischemic disease. Cerebral venous sinuses and major arterial flow voids appear patent. Mastoid air cells are clear. Minimal mucosal thickening of the paranasal sinuses. Prior bilateral lens repair. IMPRESSION: 1. No acute intracranial abnormality. No acute or subacute infarct. 2. Involutional changes with chronic microvascular ischemic disease. ACT 112: Negative or not required by law. The above report was generated using voice recognition software. It may contain grammatical, syntax or spelling errors. Electronically signed by: Tad Cardoso M.D. 05/26/2022 1:24 PM Cervical Spine MRI 05/26/22 12:34 MR cervical spine wo con HISTORY: 77 years-old Male R UE weakness acute strokelike symptoms with right upper extremity weakness COMPARISON: Brain MRI of same day TECHNIQUE: Multiplanar multisequence MRI of the cervical spine was obtained without the use of IV contrast. FINDINGS: The imaged posterior fossa structures appear unremarkable. Signal within the brainstem, cervical and imaged thoracic spinal cord appears normal. No acute fracture, subluxation or endplate erosion. Mild to moderate marrow edema involves the right C4-C5 facets with trace associated facet effusion and mild adjacent soft tissue edema. Multilevel disc desiccation. C2-C3: Uncovertebral hypertrophy with moderate left-sided facet arthrosis. D egenerative fusion of the right facets. No central canal or neural foraminal narrowing. C3-C4: Vertebral hypertrophy with moderate left and severe right facet arthrosis. Trace right facet effusion. The central canal is patent. Mild to moderate right with moderate left neural foraminal narrowing. C4-C5: Uncovertebral hypertrophy with small posterior annular disc bulge/disc osteophyte complex. Severe right with moderate left neural foraminal narrowing. Flattening of the ventral thecal sac without significant central canal stenosis. Severe right with moderate to severe left neural foraminal narrowing. C5-C6: Uncovertebral hypertrophy with small circumferential annular disc bulge/posterior disc osteophyte complex. Severe right with moderate left facet arthrosis. Flattening of the ventral thecal sac without significant central canal stenosis. Moderate right with [id number] left. C6-C7: Mild posterior intervertebral disc space narrowing with uncovertebral hypertrophy and small posterior disc osteophyte complex. Moderate to severe facet arthrosis. The central canal is patent. Mild to moderate left with mild right neural foraminal narrowing. C7-T1: Mild uncovertebral hypertrophy with moderate facet arthrosis. No central canal or neural foraminal narrowing. IMPRESSION: 1. No acute fracture. 2. Multilevel neural foraminal narrowing as above without significant central canal stenosis. 3. Marrow edema involving the right C4-C5 facets is likely on a degenerative basis. 4. Normal signal of the cervical spinal cord. ACT 112: Negative or not required by law. The above report was generated using voice recognition software. It may contain grammatical, syntax or spelling errors. Electronically signed by: Tad Cardoso M.D. 05/26/2022 1:57 PM Hip/Pelvis X-Ray 05/27/22 11:36 XR hip RT 2V w pelvis CLINICAL HISTORY: R hip/low back pain s/p fall, eval fx. COMPARISON STUDY: No previous studies for comparison. TECHNIQUE: AP pelvis and 2 right hip views FINDINGS: Bones: The bones are osteopenic. There is no evidence for an acute fracture or dislocation. There is no lytic or blastic lesion. Joints: There is mild narrowing of the joint spaces superiorly, bilaterally. The bones are in anatomic alignment. Lumbar spine: The lower lumbar spine was included on the AP view pelvis and demonstrates degenerative change. Soft tissues: There is no focal soft tissue abnormality. There is no radiopaque foreign body. IMPRESSION: 1. No acute osseous pathology. 2. Osteopenia and osteoarthritis. ACT 112: Negative or not required by law. Electronically signed by: Rick Stanley M.D. 05/27/2022 1:47 PM 05/27/2022 ECHOCARDIOGRAM Normal LV size and systolic function. EF 65-70%. No regional wall motion abnormalities. Mild concentric LVH. Sclerotic aortic valve without significant stenosis. Mild pulmonary hypertension. Estimated RVSP 36-41mmHg. No prior study available for comparison. Hospital Course (1) Right arm weakness: Improving subjective right arm weakness/resolved right leg weakness/status post fall out of bed while playing with dog at home for unknown length of time (he thought possible 4 hours). Alcohol level also elevated on admission ~300 CT head, MRI brain negative for acute stroke ECHO without significant valvular abnormality Per Neurology, patient's current weakness pattern is not highly suggestive of stroke, seems to be more consistent with transient compression of the right brachial plexus. Added ASA 81mg daily, lipid panel LDL 97 and atorvastatin added but will reduce dose given age and acceptable lipid panel to prevent worsening myalgias Need outpatient neurology follow up for conventional arteriogram although Dr Finnegan doubting anything for vertebral artery occlusion of basilar artery given no CVA on imaging --> Dr Steele recommending Dr Clinton at [facility]. Requested CM assistance in arranging outpatient follow up but also giving patient number for their office Vascular consulted while inpatient for bilateral carotid stenosis --> follow up 1 year outpatient for monitoring of carotids. suspect brachial plexus injury from position patient laying with pressure on brachial plexus or compression of nerve root from the c-spine after reported fall. Also agrees with ASA 81mg and statin B12/folate also obtained given MCV elevation on admit, on daily thiamine/folic acid. -->B12 elevated (on supp at home), folate wnl --> B1 not checked but given chronic balance issues, recommended 200mg BID x 1 month, then 100mg dialy thiamine at discharge (noted recent April Allergy visit issues with balance) PT/OT consulted -- recs to be able to return home. CK also 267 on 05/27 after 500cc NSS and could have been further elevated prior, mild rhabdo if down for extended period of time. Also additional reason to decrease dose of statin at discharge Of note, patient with equal foreign legal consultant strength, ability for passive ROM but decreased ability to raise arm above level of shoulder/drops. 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 [facility] with arranging (3) Carotid stenosis, bilateral: noted, no need for intervention per Dr Finnegan, who saw inpatient and recommends 1 year follow up agreed with ASA 81mg daily, statin (4) Hypertension: BP stable Lisinopril/HCTZ on hold on admit given appeared dry and given 500cc NSS BP elevated and labs stable/BP meds resumed and BP 147/76 prior to discharge (5) Alcohol intoxication: Alcohol level 308 upon admission, and reports daily use 2beer/2vodka Ativan available while inpatient AWSS. Folate/b12 wnl Given Thiamine IV daily, folate and instructed to continue thiamine at discharge increased dose given balance problems at baseline. (6) Status post fall: pain control --> flexeril prn for spasm pain and takes at home but ran out. New Rx along with topical voltaren as needed and tylenol for baseline control. UA negative for infection Xray pelvis/R hip negative for acute fracture (7) Hyponatremia: Na 135 on admit, TSH wnl likely 2nd to etoh, HCTZ use. Given 500cc NSS 05/26 and Na 136 on repeat (8) Hypomagnesemia: checked given cramping/discomfort, low priors mag 1.5 and ordered 3gm IV prior to discharge patient states takes oral mag at discharge (no issues reported with diarrhea) also with hypophosphatemia -- ordered dose K phos prior to d/c and suspect vitamin/nutritional deficiencies 2nd to alcohol use. Rec daily MV as well as cessation of alcohol. (9) Thrombocytopenia: chronic, seen by hematology in the past, felt related to chronic alcohol use (2 beers/2vodka per day) stable compared to prior levels (10) Anxiety: stable ativan ALCOHOL CESSATION/CUTTING BACK RECOMMENDED (2 vodka/2 beer daily) Also worked on getting new PCP as patient follows with Dr Crump but primarily for allergy/immunology and wanting regular PCP currently.. CM to assist. Also given RX for Outpatient PT Total Time Total Time Spent Total Time Spent (In Minutes): 60 Discharge Plan Discharge Items Patient Disposition: Home - Self-Care Reason For Visit: RT ARM WEAKNESS, S/P FALL Discharge Diagnosis: Right Arm Weakness Condition on Discharge: Fair Goals: You have been hospitalized for an acute medical problem. During your stay at [facility], we have made an effort to correct the problem that brought you to the hospital while keeping you as comfortable as possible. Medications were used to bring your condition under control and your discharge instructions will include directions for any medications you should take after leaving the hospital. Please make sure you see your Primary Care Provider as part of your follow up plan. Activity: Resume your previous activity Non-emergency contact: Primary Care Provider and Neurologist Call non-emergency contact if: you have any medication questions, your symptoms worsen and your pain is concerning for you Follow-up/Referrals: Emanuel Crump MD [Primary Care Provider] - 06/06/22 12:45 pm Austin Finnegan MD [Physician] - (We will schedule a carotid ultrasound in one year as follow up Call the office if any questions or concerns.) Karla Clinton MD [Outside Practitioners] - (2 weeks) Diet: Heart Healthy Add Attending Provider Instructions: You have been hospitalized for a fall out of bed with your dog. This was likely due to alcohol use and the upper arm weakness (negative studies) could be from a pinched nerve from laying on this area for a prolonged time. If this persists, it is recommended to have a neurovascular surgery consult in follow up however vascular surgery did evaluate you while in the hospital and did not feel anything acute needed. Dr Steele has recommended Dr Dinh at [facility]. Their number for appointment to call is [phone] Previous provider started you on daily aspirin 81mg for prevention and atorvastatin for cholesterol levels. For drinking, your B12/folate levels were checked and not low, however a B1 level was not checked and a lot of patients with chronic alcohol use have low levels and balance issues and it is recommended that you take 200mg twice daily for a month, then 100mg by mouth once daily after that. It is also highly recommended to cut back on drinking as it is suspected problems made worse by this, as well as moth exterminator health issues/cirrhosis/etc. You should follow up with your PCP in the next 7-10 days after discharge to monitor your progress. Please return to the emergency department with any increased pain, fever, chest pain, shortness of breath, or for any other issues concerning for you. Take care! Pending Studies at Discharge: No Stand-Alone Forms: My [facility] Medications and DC Order Prescriptions: New thiamine HCl (vitamin B1) 100 mg tablet 200 mg PO DAILY 30 Days Qty: 60 0RF aspirin 81 mg Tablet,Delayed Release (Dr/Ec) 81 mg PO QAM 30 Days Qty: 30 0RF diclofenac sodium [Voltaren Arthritis Pain] 1 % Gel 2 g EXT QID Qty: 0 0RF atorvastatin 10 mg tablet 10 mg PO DAILY Qty: 30 0RF Continued lisinopril-hydrochlorothiazide 20-25 mg tablet 1 tab PO DAILY Qty: 90 3RF sildenafil 50 mg tablet 50 mg PO DIRECTED PRN (Reason: Sexual Activity) Rx Instructions: PO As Directed; ketoconazole 2 % cream 1 applic TOP DIRECTED PRN (Reason: Skin Irritation) loratadine 10 mg tablet 10 mg PO DAILY cyclobenzaprine 5 mg tablet 5 mg PO HS PRN (Reason: Spasms) Qty: 6 0RF Discharge Orders: Discharge Order (Routine); Ordered 05/27/22 Ordered By: Melany Salcedo Admission Data Admit Date/Time: 05/26/22 02:48 Attending Provider: William Chan Admit Provider: Elijah Bonilla Primary Care Provider: Emanuel Crump Other Providers: Elijah Bonilla ; Asad Steele ; Austin Finnegan Other Interventions: Discharge Summary Assessment (RN) Last Done: 05/27/22 17:14 Coding Level of Care Code 63065 OBS Care - Discharge Diagnoses Right arm weakness R29.898 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
[2022-05-27] MEDS ORDERED: POTASSIUM PHOS 3 MMOL/1 ML INFUSION IV STA (15:01)
[2022-05-27] MEDS ORDERED: POTASSIUM PHOSPHATE 9 MMOL in SODIUM CHLORIDE 0.9% 250 ML IV ONE (15:30)
[2022-05-28] MEDS ORDERED: THIAMINE HCL 200 MG in SYRINGE 8 ML IV SCH (09:00)
--- NOTE | 2022-05-28 11:35 | History & Physical Bridge Note ---
Date of Service May 28, 2022 History & Physical Bridge Note I have examined the patient, reviewed the History & Physical and in the interval since the performance of the History & Physical I have noted the following changes of clinical significance: no changes noted Called patient to call in rx for dexamethasone 4mg PO for a week given the marrow edema involving the right C4-C5 facets and weakness with abduction and strength testing at that level. Also asked CM to help arrange for outpatient follow up with Dr Shearer/KAE Coyle for eval as well.
== END 2022-05-27 19:27 | disposition home or self-care (01) ==
LOC: ED 19:38 → 2N 19:38 → SUATTDRO 05-26 02:48 → 2N 05-26 04:39